=== PATIENT | female | born 1995 | race Caucasian/White ===

== ENCOUNTER 2016-07-01 15:05 | Observation (INO) | payer OTHER ==
[2016-07-01 16:04] VITALS: O2SAT 98
[2016-07-01 16:43] LABS: BASOPHIL % 0.1 % (0.0-0.4); Eosinophil % 1.9 % (0.00-5.0); Lymphocytes % 12.9 % (24.0-44.0); Mean Cell Volume 85.8 fl (78-100); Mean Platelet Volume 10.9 fl (6-9.5); Monocytes % 8.1 % (0.0-12.0); Platelet Count 253 K/mm3 (150-450); Red Blood Count 4.23 M/mm3 (4.1-5.4); Red Cell Distribution Width 13.7 % (11.5-14.0); White Blood Count 12.4 K/mm3 (4.0-10.5)
[2016-07-01 16:48] LABS: Mean Corpuscular Hemoglobin 27.8 pg (26-32)
[2016-07-01 16:52] LABS: COMPLETE URINE MICROSCOPIC? YES; Collection Type CLEAN CATCH; Mucus SLIGHT /HPF (NEGATIVE)
[2016-07-01 16:53] LABS: Bacteria FEW /HPF (NEGATIVE); Epithelial Cells FEW /HPF (FEW)
[2016-07-01 17:01] LABS: ALBUMIN 2.6 g/dL (3.4-5.0); ALKALINE PHOSPHATASE 99 U/L (46-116); ANION GAP 14.2 MEQ/L (5-15); BLOOD UREA NITROGEN 8 mg/dL (9-20); CHLORIDE 106 mEq/L (98-107); Glucose 93 MG/DL (70-110); SGOT/AST 11 U/L (15-37); SGPT/ALT 10 U/L (12-78); SODIUM 139 mEq/L (136-145); Total Protein 6.5 gm/dL (6.4-8.2)
[2016-07-01 17:14] LABS: BILIRUBIN,TOTAL < 0.1 mg/dL (0.2-1.0)
[2016-07-01] MEDS ORDERED: MORPHINE SULFATE 2 MG INJ IV ONE (17:32)
[2016-07-01] MEDS ORDERED: Lactated Ringers 1,000 ML IV ONE (17:32)
[2016-07-01] MEDS ORDERED: Zofran 4 MG/2 ML VIAL IV ONE (17:33)
[2016-07-01] MEDS: Lactated Ringers 1,000 ML IV SCH (18:11)
[2016-07-01] MEDS ORDERED: MORPHINE SULFATE 4 MG INJ ONE ×2 (19:53→22:19)
[2016-07-01] MEDS: MORPHINE SULFATE 4 MG INJ IV PRN ×2 (19:58→22:22)
[2016-07-01] MEDS: Zofran 4 MG/2 ML VIAL IV PRN (22:22)
[2016-07-02] MEDS ORDERED: MORPHINE SULFATE 4 MG INJ ONE ×4 (00:31→06:22)
[2016-07-02] MEDS: MORPHINE SULFATE 4 MG INJ IV PRN ×9 (00:34→19:50)
[2016-07-02] MEDS: Zofran 4 MG/2 ML VIAL IV PRN ×4 (02:21→19:50)
[2016-07-02] MEDS: Lactated Ringers 1,000 ML IV SCH ×2 (02:21→13:34)
--- NOTE | 2016-07-02 07:05 | PCM.HP ---
History of Present Illness - Chief Complaint Chief Complaint: OB CHECK History of Present Illness: is a 21 year old female at 30 wks EGA who has seen Dr Cole for her , she presented c/o left lower abdominal pain and sharp stabbing pain. She denies any noticeable hematuria. - Review of Systems Constitutional: No Fever, No Chills Respiratory: No Cough, No Short Of Breath Cardiac: No Chest Pain, No Edema, No Syncope Abdominal/Gastrointestinal: Abdominal Pain, No Nausea, No Vomiting Genitourinary Symptoms: No Dysuria, No Frequency, No Hematuria Skin: No Rash All Other Systems: Reviewed and Negative Medications & Allergies Home Medications: Home Medication List Vits W-Ca,Fe,FA(<1Mg) [] 1 tab PO DAILY 07/01/16 [History Confirmed 07/01/16] Sertraline HCl [Zoloft] 1 tab PO DAILY 07/01/16 [History Confirmed 07/01/16] Allergies/Adverse Reactions: Allergies Allergy/AdvReac Type Severity Reaction Status Date / Time No Known Drug Allergies Allergy Verified 12/13/15 20:33 - Past Medical History Past Medical History: Yes Neurological History: No Pertinent History ENT History: No Pertinent History Cardiac History: No Pertinent History Respiratory History: No Pertinent History Endocrine Medical History: No Pertinent History Musculoskelatal History: No Pertinent History GI Medical History: No Pertinent History History: Other Pyscho-Social History: Anxiety Reproductive Disorders: No Pertinent History Comment: KIDNEY STONES - Female History Expected Date of Delivery: 09/09/16 - Past Surgical History Past Surgical History: No Neuro Surgical History: No Pertinent History Cardiac History: No Pertinent History Respiratory Surgery: No Pertinent History GI Surgical History: No Pertinent History Genitourinary Surgical Hx: No Pertinent History Musculskeletal Surgical Hx: No Pertinent History Female Surgical History: No Pertinent History Other Surgical History: WISDOM TEETH. KIDNEY STONE SURGICALLY REMOVED - Social History Smoking Status: Former smoker How long have you smoked: 10 months Exposure to second hand smoke: No Alcohol: None Drug Use: none - Physical Exam Vital Signs: Vital Signs - 24 hr Temp Pulse Resp BP BP Pulse Ox 07/02/16 06:51 89 125/65 07/02/16 02:40 97 H 124/68 07/02/16 00:00 98.7 F 104 H 124/71 07/01/16 22:00 96 H 138/63 07/01/16 19:00 97.8 F 78 20 128/64 07/01/16 18:10 96 H 18 132/70 07/01/16 16:59 83 18 131/65 07/01/16 15:40 96 H 154/70 07/01/16 15:31 98.3 F 96 H 18 157/70 98 General Appearance: no apparent distress, alert Respiratory Exam: normal breath sounds, lungs clear, No respiratory distress Cardiovascular Exam: regular rate/rhythm, normal heart sounds, normal peripheral pulses Gastrointestinal/Abdomen Exam: tenderness (left lower abdomen) Extremity Exam: normal inspection, normal range of motion, pelvis stable Skin Exam: normal color, warm, dry, No rash Results - Labs Lab/Micro Results: Lab Results-Last 24 Hours 07/01/16 07/01/16 07/01/16 Range/Units 16:24 16:30 16:38 WBC 12.4 H (4.0-10.5) K/mm3 RBC 4.23 (4.1-5.4) M/mm3 Hgb 11.8 L (12.0-16.0) gm/dl Hct 36.3 (35-47) % MCV 85.8 (78-100) fl MCH 27.8 (26-32) pg MCHC 32.5 (32-36) g/dl RDW 13.7 (11.5-14.0) % Plt Count 253 (150-450) K/mm3 MPV 10.9 H (6-9.5) fl Gran % 77.0 H (36.0-66.0) % Lymphocytes % 12.9 L (24.0-44.0) % Monocytes % 8.1 (0.0-12.0) % Eosinophils % 1.9 (0.00-5.0) % Basophils % 0.1 (0.0-0.4) % Basophils # 0.01 (0-0.4) Sodium (136-145) mEq/L Potassium (3.5-5.1) mEq/L Chloride (98-107) mEq/L Carbon Dioxide (21-32) mEq/L Anion Gap (5-15) MEQ/L BUN (9-20) mg/dL Creatinine (0.55-1.30) mg/dl Estimated GFR ML/MIN Glucose (70-110) MG/DL Uric Acid (2.6-6.0) mg/dL Calcium (8.5-10.1) mg/dL Total Bilirubin (0.2-1.0) mg/dL AST (15-37) U/L ALT (12-78) U/L Alkaline Phosphatase (46-116) U/L Serum Total Protein (6.4-8.2) gm/dL Albumin (3.4-5.0) g/dL Ur Collection Type CLEAN CATCH Urine Color YELLOW (YELLOW) Urine Appearance CLOUDY (CLEAR) Urine pH 7.0 (5-6) Ur Specific Roosevelt 1.020 (1.005-1.025) Urine Protein 30 (Negative) Urine Glucose (UA) NEGATIVE (NEGATIVE) mg/dL Urine Ketones NEGATIVE (NEGATIVE) Urine Nitrite NEGATIVE (NEGATIVE) Urine Bilirubin NEGATIVE (NEGATIVE) Urine Urobilinogen 0.2 (0-1) mg/dL Urine WBC (Auto) NEGATIVE (NEGATIVE) Urine RBC (Auto) LARGE (0-5) Obed/ul Urine Microscopic RBC 25-50 (0-2) /HPF Ur Epithelial Cells FEW (FEW) /HPF Calcium Oxalate Crystal 2-5 (NEGATIVE) /HPF Amorphous Crystals FEW (NEGATIVE) /HPF Urine Bacteria FEW (NEGATIVE) /HPF Urine Mucus SLIGHT (NEGATIVE) /HPF Urine Opiates Level NEG. (NEGATIVE) Ur Methadone NEG. (NEGATIVE) Urine Barbiturates NEG. (NEGATIVE) Ur Phencyclidine (PCP) NEG. (NEGATIVE) Urine Amphetamine NEG. (NEGATIVE) U Benzodiazepine Level NEG. (NEGATIVE) Urine Cocaine NEG. (NEGATIVE) Urine Marijuana (THC) NEG. (NEGATIVE) Specimen Received 07/01/16:1630 07/01/16 Range/Units 16:38 WBC (4.0-10.5) K/mm3 RBC (4.1-5.4) M/mm3 Hgb (12.0-16.0) gm/dl Hct (35-47) % MCV (78-100) fl MCH (26-32) pg MCHC (32-36) g/dl RDW (11.5-14.0) % Plt Count (150-450) K/mm3 MPV (6-9.5) fl Gran % (36.0-66.0) % Lymphocytes % (24.0-44.0) % Monocytes % (0.0-12.0) % Eosinophils % (0.00-5.0) % Basophils % (0.0-0.4) % Basophils # (0-0.4) Sodium 139 (136-145) mEq/L Potassium 4.0 (3.5-5.1) mEq/L Chloride 106 (98-107) mEq/L Carbon Dioxide 23.0 (21-32) mEq/L Anion Gap 14.2 (5-15) MEQ/L BUN 8 L (9-20) mg/dL Creatinine 0.70 (0.55-1.30) mg/dl Estimated GFR > 60 ML/MIN Glucose 93 (70-110) MG/DL Uric Acid 4.9 (2.6-6.0) mg/dL Calcium 8.4 L (8.5-10.1) mg/dL Total Bilirubin < 0.1 L (0.2-1.0) mg/dL AST 11 L (15-37) U/L ALT 10 L (12-78) U/L Alkaline Phosphatase 99 (46-116) U/L Serum Total Protein 6.5 (6.4-8.2) gm/dL Albumin 2.6 L (3.4-5.0) g/dL Ur Collection Type Urine Color (YELLOW) Urine Appearance (CLEAR) Urine pH (5-6) Ur Specific Roosevelt (1.005-1.025) Urine Protein (Negative) Urine Glucose (UA) (NEGATIVE) mg/dL Urine Ketones (NEGATIVE) Urine Nitrite (NEGATIVE) Urine Bilirubin (NEGATIVE) Urine Urobilinogen (0-1) mg/dL Urine WBC (Auto) (NEGATIVE) Urine RBC (Auto) (0-5) Obed/ul Urine Microscopic RBC (0-2) /HPF Ur Epithelial Cells (FEW) /HPF Calcium Oxalate Crystal (NEGATIVE) /HPF Amorphous Crystals (NEGATIVE) /HPF Urine Bacteria (NEGATIVE) /HPF Urine Mucus (NEGATIVE) /HPF Urine Opiates Level (NEGATIVE) Ur Methadone (NEGATIVE) Urine Barbiturates (NEGATIVE) Ur Phencyclidine (PCP) (NEGATIVE) Urine Amphetamine (NEGATIVE) U Benzodiazepine Level (NEGATIVE) Urine Cocaine (NEGATIVE) Urine Marijuana (THC) (NEGATIVE) Specimen Received - Radiology Impressions Radiology Exams & Impressions: Radiology Procedures Category Date Time Status KIDNEY [US] Urgent Exams 07/02/16 06:59 Ordered Assessment/Plan (1) Ureteral stone Current Visit: Yes Status: Acute Assessment & Plan: patient has significant pain and hematuria on u/a with calcium oxalate crystals. has had stones in the past (2) Current Visit: Yes Status: Acute Code(s): Z33.1 - STATE, INCIDENTAL
--- NOTE | 2016-07-02 16:33 | XRAY ---
Indication: Right flank pain and hematuria. Crystals in urine. Patient 30 weeks . Two-dimensional renal sonogram performed. Comparison: February 04, 2013. Both kidneys again normal in reniform shape. Right kidney measures 12.0 x 6.4 x 4.9 cm and the left measures 11.6 x 4.6 x 5.2 cm. Right kidney demonstrates new moderate hydronephrosis with 7 mm calculus in the lower calyx. Left kidney negative for suspicious mass or hydronephrosis. Images of the bladder unremarkable with bilateral ureteral jets demonstrated. Impression: 1. New right renal hydronephrosis with subcentimeter calculus. Distal right ureteral jet is documented suggesting little to no obstruction. Hydronephrosis could be also related to current . 2. Negative left renal sonogram.
[2016-07-02] MEDS ORDERED: TYLENOL 325 MG PO PRN (17:52)
[2016-07-02 17:54] VITALS: BP 123/59; PULSE 90
[2016-07-02] MEDS ORDERED: TYLENOL 325 MG ONE (17:54)
== END 2016-07-02 20:07 | disposition critical access hospital (66) ==
LOC: OB 15:05 → UNDOADMOB 15:05 → UNDODISOB 07-02 20:07
PROVIDERS: ADMIT Family Medicine; ATTEND Family Medicine
DX: N20.0 Calculus of kidney (principal); Z33.1 Pregnant state, incidental; Z87.442 Personal history of urinary calculi
CPT/HCPCS: 36415; 76770; 80053; 80307; 81000; 84550; 85025; G0378; J2270; J2405; A9270-GY

== ENCOUNTER 2016-08-08 06:06 | Observation (INO) | payer OTHER ==
[2016-08-08] MEDS ORDERED: Lactated Ringers 1,000 ML IV ONE ×2 (06:32→06:45)
[2016-08-08 07:03] LABS: Collection Type CLEAN CATCH
[2016-08-08 07:04] LABS: COMPLETE URINE MICROSCOPIC? YES
[2016-08-08] MEDS ORDERED: MORPHINE SULFATE 10 MG/ML IV ONE (07:04)
[2016-08-08] MEDS ORDERED: Phenergan 25 MG INJ IV ONE (07:05)
[2016-08-08 07:06] LABS: Mucus SLIGHT /HPF (NEGATIVE)
[2016-08-08 07:07] LABS: Bacteria MODERATE /HPF (NEGATIVE); Epithelial Cells MODERATE /HPF (FEW)
[2016-08-08 07:11] LABS: BASOPHIL % 0.2 % (0.0-0.4); Eosinophil % 2.1 % (0.00-5.0); Granulocytes % 65.8 % (36.0-66.0); Lymphocytes % 23.4 % (24.0-44.0); Mean Cell Volume 84.9 fl (78-100); Mean Platelet Volume 12.5 fl (6-9.5); Monocytes % 8.5 % (0.0-12.0); Platelet Count 259 K/mm3 (150-450); Red Blood Count 4.17 M/mm3 (4.1-5.4); Red Cell Distribution Width 14.4 % (11.5-14.0); White Blood Count 10.1 K/mm3 (4.0-10.5)
[2016-08-08] MEDS ORDERED: Sodium Chloride 0.9% 1000 ML 1,000 ML IV STA (07:12)
[2016-08-08 07:19] LABS: Mean Corpuscular Hemoglobin 27.5 pg (26-32)
[2016-08-08 07:43] LABS: ALBUMIN 2.4 g/dL (3.4-5.0); ALKALINE PHOSPHATASE 110 U/L (46-116); ANION GAP 16.8 MEQ/L (5-15); BILIRUBIN,TOTAL 0.2 mg/dL (0.2-1.0); BLOOD UREA NITROGEN 14 mg/dL (9-20); CHLORIDE 105 mEq/L (98-107); Carbon Dioxide 19.5 mEq/L (21-32); Glucose 112 MG/DL (70-110); Potassium 3.6 mEq/L (3.5-5.1); SGOT/AST 15 U/L (15-37); SGPT/ALT 14 U/L (12-78); SODIUM 138 mEq/L (136-145); Total Protein 6.2 gm/dL (6.4-8.2)
[2016-08-08] MEDS ORDERED: MORPHINE SULFATE 10 MG/ML IV PRN (08:04)
[2016-08-08] MEDS ORDERED: Lactated Ringers 1,000 ML IV SCH (09:30)
[2016-08-08] MEDS ORDERED: ROCEPHIN 1 Gm-D5w 50 ml Bag** 1 G/50 ML IVPB IV SCH (10:00)
--- NOTE | 2016-08-08 10:25 | XRAY ---
Indication: Pain. 2-dimensional OB ultrasound performed. Comparison: February 01, 2016. Again there is a single viable intrauterine currently in cephalic presentation. Normal four-chamber heart with heart rate 144 bpm. Three-vessel cord not clearly seen but normal cord insertion. Images of the head, spine, stomach, kidneys, and bladder appear unremarkable. Placenta is posterior without abruption/previa. Cervical length measures 3.7 cm. BPD measures 9.22 cm corresponding to 37 weeks 3 days. HC measures 32.80 cm corresponding to 37 weeks 2 days. AC measures 34.76 cm corresponding to 38 weeks 5 days. FL measures 6.99 cm corresponding to 35 weeks 6 days. ROXANN is 16.8 cm. Impression: Again single viable intrauterine with mean gestational age 37 weeks 2 days. There has been progression in the with the fetus now measuring 12 days larger. Three-vessel cord not clearly seen.
--- NOTE | 2016-08-08 10:26 | XRAY ---
Indication: Left-sided pain. Two-dimensional renal sonogram performed. Comparison: July 02, 2016. Both kidneys again normal in reniform shape. Right kidney measures 11.6 x 5.0 x 4.8 cm and the left measures 11.4 x 5.7 x 5.6 cm. Normal color perfusion bilaterally. Previous right renal calculus and hydronephrosis not seen. No suspicious renal mass or hydronephrosis. Cortical medullary differentiation preserved without cortical thinning. Impression: Negative renal sonogram.
[2016-08-08 16:59] VITALS: BP 144/70; PULSE 93
== END 2016-08-08 16:25 | disposition home or self-care (01) ==
LOC: OB 06:06
PROVIDERS: ADMIT Family Medicine; ATTEND Family Medicine
DX: Z34.03 Encounter for supervision of normal first pregnancy, third trimester (principal)
CPT/HCPCS: 36415; 76770; 76805; 80053; 80307; 81000; 85025; 87086; G0378; J0696; J2270; J2550

== ENCOUNTER 2016-08-16 15:08 | Emergency (ER) | payer OTHER ==
[2016-08-16 15:25] VITALS: BP 159/85
[2016-08-16] MEDS ORDERED: AMOXIL 500 MG PO ONE (15:46)
--- NOTE | 2016-08-16 15:46 | ERPHSYRPT ---
- History of Present Illness Time Seen by Provider: 08/16/16 15:30 Source: patient Exam Limitations: clinical condition Patient Subjective Stated Complaint: normal vaginal delivery four days ago and woke up this am with a cough and trouble breathing. coughing up clear watery stuff Triage Nursing Assessment: to room per w/c. skin w/d, color pale, resp nonlabored. Physician History: PATIENT IS 4 DAYS SPONTANEOUS VAGINAL DELIVERY UNDER EPIDURAL ANESTHESIA, COMPLAINS OF PRODUCTIVE COUGH CLEAR SPUTUM TODAY. DENIES FEVER, CHILLS, CHEST PAIN OR DYSPNEA. Timing/Duration: today Cough Quality/Degree: moderate, productive cough Possible Cause: no prior episodes Modifying Factors: Improves With: coughing, deep breath International travel in last 2 weeks: No Allergies/Adverse Reactions: No Known Drug Allergies Allergy (Verified 12/13/15 20:33) Home Medications: Vits W-Ca,Fe,FA(<1Mg) [] 1 tab PO DAILY 07/01/16 [History] Sertraline HCl [Zoloft] 1 tab PO DAILY 07/01/16 [History] Hx Tetanus, Diphtheria Vaccination/Date Given: No Hx Influenza Vaccination/Date Given: Yes (2015) Hx Pneumococcal Vaccination/Date Given: No - Review of Systems Constitutional: No Symptoms, No Fever, No Chills Eyes: No Symptoms Ears, Nose, & Throat: No Symptoms Respiratory: Cough, No Dyspnea Cardiac: No Symptoms, No Chest Pain, No Edema, No Syncope Abdominal/Gastrointestinal: No Symptoms, No Abdominal Pain, No Nausea, No Vomiting, No Diarrhea Genitourinary Symptoms: No Symptoms, No Dysuria Musculoskeletal: No Symptoms, No Back Pain, No Neck Pain Skin: No Symptoms, No Rash Neurological: No Dizziness, No Focal Weakness, No Sensory Changes Psychological: No Symptoms Endocrine: No Symptoms All Other Systems: Reviewed and Negative - Past Medical History Pertinent Past Medical History: Yes Neurological History: No Pertinent History ENT History: No Pertinent History Cardiac History: No Pertinent History Respiratory History: No Pertinent History Endocrine Medical History: No Pertinent History Musculoskeletal History: No Pertinent History GI Medical History: No Pertinent History History: Other Psycho-Social History: Anxiety Female Reproductive Disorders: No Pertinent History Other Medical History: KIDNEY STONES, preeclampsia - Past Surgical History Past Surgical History: No Neuro Surgical History: No Pertinent History Cardiac: No Pertinent History Respiratory: No Pertinent History Gastrointestinal: No Pertinent History Genitourinary: No Pertinent History Musculoskeletal: No Pertinent History Female Surgical History: No Pertinent History Other Surgical History: WISDOM TEETH. KIDNEY STONE SURGICALLY REMOVED - Social History Smoking Status: Never smoker How long have you smoked: 10 months Exposure to second hand smoke: No Drug Use: none Patient Lives Alone: No - Female History Hx Now: No - Nursing Vital Signs Nursing Vital Signs: Initial Vital Signs Temperature 98.6 F Temperature Source Oral Pulse Rate 74 Respiratory Rate 24 Blood Pressure [Right Arm] 159/85 Pain Intensity 4 - Physical Exam General Appearance: no apparent distress, alert Eye Exam: PERRL/EOMI, eyes nml inspection Ears, Nose, Throat Exam: normal ENT inspection, TMs normal, pharynx normal, moist mucous membranes Neck Exam: normal inspection, non-tender, supple, full range of motion Respiratory Exam: normal breath sounds, lungs clear, No respiratory distress Cardiovascular Exam: regular rate/rhythm, normal heart sounds Gastrointestinal/Abdomen Exam: soft, normal bowel sounds, No tenderness Back Exam: normal inspection, No CVA tenderness, No vertebral tenderness Extremity Exam: normal range of motion, pedal edema (+1 PRETIBAL EDEMA) Neurologic Exam: alert, oriented x 3, cooperative, normal mood/affect, sensation nml, No motor deficits Skin Exam: normal color, warm, dry, No rash Lymphatic Exam: No adenopathy SpO2 Interpretation: normal SpO2: 96 Oxygen Delivery: Room Air - Radiology Exams Chest X-ray Interpretation: Discussed w/ radiologist (SUBTLE RETROCARDIAL INFLITRATE/ ATELECTASIS LEFT LOWER LOBE) Ordered Tests: Active Orders 24 hr Category Date Time Status CHEST 2 VIEWS (PA AND LAT) Stat Exams 08/16/16 15:42 Completed Respiratory Nebulizer STAT RT 08/16/16 16:17 Completed Medication Summary Discontinued Medications Generic Name Dose Route Start Last Admin Trade Name Freq PRN Reason Stop Dose Admin Albuterol/Ipratropium 3 ml 08/16/16 16:17 08/16/16 16:24 Duoneb 0.5-3 Mg/3 Ml Neb IH 08/16/16 16:18 3 ml STAT ONE Administration Albuterol/Ipratropium Confirm 08/16/16 16:22 Duoneb 0.5-3 Mg/3 Ml Neb Administered 08/16/16 16:23 Dose 3 ml IH .STK-MED ONE Amoxicillin 500 mg 08/16/16 15:46 08/16/16 16:11 Amoxil 500 Mg PO 08/16/16 15:47 500 mg STAT ONE Administration Amoxicillin Confirm 08/16/16 16:09 Amoxil 500 Mg Administered 08/16/16 16:10 Dose 500 mg .ROUTE .STK-MED ONE - Progress Progress: improved Progress Note: 08/16/16 16:44 PATIENT GIVEN DUONEB AEROSOL, AMOXICILLIN 500MG ORALLY Counseled pt/family regarding: diagnosis, need for follow-up, rad results - Departure Time of Disposition: 17:00 Departure Disposition: Home Clinical Impression: ACUTE BRONCHITIS Condition: Stable Critical Care Time: No Additional Instructions: ANTIBIOTIC AMOXICILLIN 500MG EVERY 8 HOURS FOR 10 DAYS. TYLENOL OR MOTRIN FOR FEVER NEEDED. ALBUTEROL INHALER 2 PUFFS EVERY 4 HOURS NEEDED. CONSULT YOUR FAMILY PHYSICIAN FOR FOLLOWUP IN 1 WEEK. Prescriptions: Albuterol 8 gm Mdi Hfa [Ventolin Hfa MDI] 2 puffs IH Q4H PRN PRN #1 [email or web address] PRN Reason: DIFFICULTY BREATHING Amoxicillin 500 mg PO TID #30 tablet
[2016-08-16] MEDS ORDERED: AMOXIL 500 MG ONE (16:09)
[2016-08-16] MEDS ORDERED: DUONEB 0.5-3 MG/3 ml Neb IH ONE ×2 (16:17→16:22)
--- NOTE | 2016-08-16 16:19 | XRAY ---
Indication: Productive cough. Comparison: January 27, 2015. PA/lateral chest demonstrates new subtle retrocardiac infiltrate/atelectasis, probably left lower lobe. Remaining heart, lungs, and bony thorax normal.
[2016-08-16 16:26] VITALS: PULSE 74
[2016-08-16 16:50] VITALS: O2SAT 96
== END 2016-08-16 17:07 | disposition home or self-care (01) ==
LOC: ED 15:08
DX: J20.9 Acute bronchitis, unspecified (principal); R05 Cough
CPT/HCPCS: 71020; 94640; 99283; 99284; A9270-GY

== ENCOUNTER 2017-01-03 02:46 | Emergency (ER) | payer OTHER ==
[2017-01-03] MEDS ORDERED: TORAdol 30 mg Injection IV ONE (03:01)
--- NOTE | 2017-01-03 03:08 | ERPHSYRPT ---
- History of Present Illness Time Seen by Provider: 01/03/17 02:52 Source: patient Exam Limitations: no limitations Physician History: WITHIN THE PAST 5 HOURS PT HAS HAD SUBJECTIVE FEVER, CHILLS, NAUSEA, URINARY URGENCY, DIZZINESS AND TINNITUS. Allergies/Adverse Reactions: No Known Drug Allergies Allergy (Verified 01/03/17 03:33) Home Medications: Sertraline HCl [Zoloft] 1 tab PO DAILY 07/01/16 [History] Hx Tetanus, Diphtheria Vaccination/Date Given: No Hx Influenza Vaccination/Date Given: Yes (2015) Hx Pneumococcal Vaccination/Date Given: No - Review of Systems Constitutional: Fever, Chills Ears, Nose, & Throat: Tinnitus Abdominal/Gastrointestinal: Nausea Genitourinary Symptoms: Urgency Neurological: Dizziness All Other Systems: Reviewed and Negative - Past Medical History Pertinent Past Medical History: Yes Neurological History: No Pertinent History ENT History: No Pertinent History Cardiac History: No Pertinent History Respiratory History: No Pertinent History Endocrine Medical History: No Pertinent History Musculoskeletal History: No Pertinent History GI Medical History: No Pertinent History History: Other Psycho-Social History: Anxiety Female Reproductive Disorders: No Pertinent History Other Medical History: KIDNEY STONES, preeclampsia - Past Surgical History Past Surgical History: No Neuro Surgical History: No Pertinent History Cardiac: No Pertinent History Respiratory: No Pertinent History Gastrointestinal: No Pertinent History Genitourinary: No Pertinent History Musculoskeletal: No Pertinent History Female Surgical History: No Pertinent History Other Surgical History: WISDOM TEETH. KIDNEY STONE SURGICALLY REMOVED - Social History Smoking Status: Never smoker How long have you smoked: 10 months Exposure to second hand smoke: No Drug Use: none Patient Lives Alone: No - Female History Hx Now: No - Nursing Vital Signs Nursing Vital Signs: Initial Vital Signs Temperature 100.8 F 01/03/17 02:50 Pulse Rate 96 H 01/03/17 02:50 Respiratory Rate 16 01/03/17 02:50 Blood Pressure 138/60 01/03/17 02:50 O2 Sat by Pulse Oximetry 95 01/03/17 02:50 Pain Scale Pain Intensity 2 - Physical Exam General Appearance: alert Eye Exam: PERRL/EOMI Ears, Nose, Throat Exam: moist mucous membranes, TM abnormal (L) (LEFT TM ERYTHEMATOUS) Neck Exam: normal inspection Respiratory Exam: lungs clear Cardiovascular Exam: normal heart sounds Gastrointestinal/Abdomen Exam: soft, normal bowel sounds, No tenderness Back Exam: normal range of motion Extremity Exam: normal inspection, No pedal edema Neurologic Exam: alert, cooperative Skin Exam: warm, dry - Course Nursing assessment & vital signs reviewed: Yes - CT Exams Abdomen/Pelvis CT Interpretation: Tele-radiologist Report (MULTIPLE NONOBSTRUCTING STONES ARE PRESENT WITHIN THE RIGHT KIDNEY. NO DISTAL URETERAL OR BLADDER STONES ARE SEEN. NO HYDRONEPHROSIS.) Ordered Tests: Active Orders 24 hr Category Date Time Status Clean Catch Urine Specimen STAT Care 01/03/17 03:18 Active IV Insertion STAT Care 01/03/17 03:01 Active ABDOMEN AND PELVIS W/0 CONTRAS [CT] Stat Exams 01/03/17 04:34 Taken AMYLASE Stat Lab 01/03/17 03:30 Completed BLOOD CULTURE Stat Lab 01/03/17 03:30 Received CBC W DIFF Stat Lab 01/03/17 03:30 Completed CMP Stat Lab 01/03/17 03:30 Completed HCG QUALITATIVE,SERUM Stat Lab 01/03/17 03:30 Completed LIPASE Stat Lab 01/03/17 03:30 Completed UA W/RFX UR CULTURE Stat Lab 01/03/17 03:10 Completed Medication Summary Generic Name Dose Route Start Last Admin Trade Name Freq PRN Reason Stop Dose Admin Sodium Chloride 1,000 mls @ 325 mls/hr 01/03/17 03:15 01/03/17 03:34 Sodium Chloride 0.9% 1000 Ml IV 02/02/17 03:14 325 mls/hr .[id number] SAMEERA Administration Discontinued Medications Generic Name Dose Route Start Last Admin Trade Name Freq PRN Reason Stop Dose Admin Hydromorphone HCl 1 mg 01/03/17 04:35 01/03/17 04:54 Hydromorphone 1 Mg/Ml Ampule IV 01/03/17 04:36 1 mg STAT ONE Administration Ketorolac Tromethamine 30 mg 01/03/17 03:01 01/03/17 03:33 Toradol 30 Mg Injection IV 01/03/17 03:02 30 mg STAT ONE Administration Ketorolac Tromethamine Confirm 01/03/17 03:30 Toradol 30 Mg Injection Administered 01/03/17 03:31 Dose 30 mg .ROUTE .STK-MED ONE Promethazine HCl 12.5 mg 01/03/17 04:35 01/03/17 04:54 Phenergan 25 Mg Inj IV 01/03/17 04:36 12.5 mg STAT ONE Administration Promethazine HCl Confirm 01/03/17 04:52 Phenergan 25 Mg Inj Administered 01/03/17 04:53 Dose 25 mg .ROUTE .STK-MED ONE Lab/Rad Data: Laboratory Result Diagrams 01/03/17 03:30 01/03/17 03:30 Laboratory Results 01/03/17 01/03/17 01/03/17 Range/Units 03:30 03:30 03:30 WBC 5.5 (4.0-10.5) K/mm3 RBC 4.68 (4.1-5.4) M/mm3 Hgb 12.7 (12.0-16.0) gm/dl Hct 38.9 (35-47) % MCV 83.1 (78-100) fl MCH 27.1 (26-32) pg MCHC 32.6 (32-36) g/dl RDW 13.1 (11.5-14.0) % Plt Count 254 (150-450) K/mm3 MPV 11.1 H (6-9.5) fl Gran % 59.8 (36.0-66.0) % Lymphocytes % 24.4 (24.0-44.0) % Monocytes % 12.5 H (0.0-12.0) % Eosinophils % 2.9 (0.00-5.0) % Basophils % 0.4 (0.0-0.4) % Basophils # 0.02 (0-0.4) Sodium 141 (136-145) mEq/L Potassium 3.7 (3.5-5.1) mEq/L Chloride 106 (98-107) mEq/L Carbon Dioxide 24.7 (21-32) mEq/L Anion Gap 14.0 (5-15) MEQ/L BUN 12 (9-20) mg/dL Creatinine 0.83 (0.55-1.30) mg/dl Estimated GFR > 60 ML/MIN Glucose 121 H (70-110) MG/DL Calcium 9.1 (8.5-10.1) mg/dL Total Bilirubin 0.10 L (0.2-1.0) mg/dL AST 18 (15-37) U/L ALT 30 (12-78) U/L Alkaline Phosphatase 147 H (46-116) U/L Serum Total Protein 6.8 (6.4-8.2) gm/dL Albumin 3.3 L (3.4-5.0) g/dL Amylase 45 (25-115) U/L Lipase 126 (73-393) U/L Serum , Qual NEGATIVE (Negative) Ur Collection Type Urine Color (YELLOW) Urine Appearance (CLEAR) Urine pH (5-6) Ur Specific Girard (1.005-1.025) Urine Protein (Negative) Urine Ketones (NEGATIVE) Urine Blood (0-5) Obed/ul Urine Nitrite (NEGATIVE) Urine Bilirubin (NEGATIVE) Urine Urobilinogen (0-1) mg/dL Ur Leukocyte Esterase (NEGATIVE) Urine Glucose (NEGATIVE) mg/dL Specimen Received 01/03/17 Range/Units 03:10 WBC (4.0-10.5) K/mm3 RBC (4.1-5.4) M/mm3 Hgb (12.0-16.0) gm/dl Hct (35-47) % MCV (78-100) fl MCH (26-32) pg MCHC (32-36) g/dl RDW (11.5-14.0) % Plt Count (150-450) K/mm3 MPV (6-9.5) fl Gran % (36.0-66.0) % Lymphocytes % (24.0-44.0) % Monocytes % (0.0-12.0) % Eosinophils % (0.00-5.0) % Basophils % (0.0-0.4) % Basophils # (0-0.4) Sodium (136-145) mEq/L Potassium (3.5-5.1) mEq/L Chloride (98-107) mEq/L Carbon Dioxide (21-32) mEq/L Anion Gap (5-15) MEQ/L BUN (9-20) mg/dL Creatinine (0.55-1.30) mg/dl Estimated GFR ML/MIN Glucose (70-110) MG/DL Calcium (8.5-10.1) mg/dL Total Bilirubin (0.2-1.0) mg/dL AST (15-37) U/L ALT (12-78) U/L Alkaline Phosphatase (46-116) U/L Serum Total Protein (6.4-8.2) gm/dL Albumin (3.4-5.0) g/dL Amylase (25-115) U/L Lipase (73-393) U/L Serum , Qual (Negative) Ur Collection Type CLEAN CATCH Urine Color YELLOW (YELLOW) Urine Appearance CLEAR (CLEAR) Urine pH 6.0 (5-6) Ur Specific [place] 1.015 (1.005-1.025) Urine Protein NEGATIVE (Negative) Urine Ketones NEGATIVE (NEGATIVE) Urine Blood NEGATIVE (0-5) Obed/ul Urine Nitrite NEGATIVE (NEGATIVE) Urine Bilirubin NEGATIVE (NEGATIVE) Urine Urobilinogen NORMAL (0-1) mg/dL Ur Leukocyte Esterase NEGATIVE (NEGATIVE) Urine Glucose NEGATIVE (NEGATIVE) mg/dL Specimen Received 01/03/17:0300 - Departure Time of Disposition: 06:15 Departure Disposition: Home Clinical Impression: RIGHT MID BACK PAIN, LOM, ANXIETY Condition: Stable Critical Care Time: No Referrals: JEANINE HYMAN [Primary Care Provider] - Instructions: Otitis Media (Middle Ear Infection) Additional Instructions: FOLLOW UP WITH PRIVATE DOCTOR TOMORROW. Prescriptions: Promethazine HCl 25 mg [Phenergan 25 mg] 25 mg PO Q4H PRN PRN #14 tablet PRN Reason: Nausea/Vomiting Azithromycin 250 mg [Zithromax 250 MG TABLET] 250 mg PO ZPACK #6 tablet
[2017-01-03] MEDS ORDERED: Sodium Chloride 0.9% 1000 ML 1,000 ML IV SCH (03:15)
[2017-01-03 03:30] LABS: ADD URINE CULTURE? NO (NO); Bilirubin NEGATIVE (NEGATIVE); Blood NEGATIVE Ery/ul (0-5); COMPLETE URINE MICROSCOPIC? NO; Collection Type CLEAN CATCH; Glucose NEGATIVE (NEGATIVE); Leukocyte Esterase NEGATIVE (NEGATIVE)
[2017-01-03] MEDS ORDERED: TORAdol 30 mg Injection ONE (03:30)
[2017-01-03] MEDS ORDERED: Sodium Chloride 0.9% 1000 ML 1,000 ML ONE (03:30)
[2017-01-03 03:54] LABS: BASOPHIL % 0.4 % (0.0-0.4); Eosinophil % 2.9 % (0.00-5.0); Granulocytes % 59.8 % (36.0-66.0); Lymphocytes % 24.4 % (24.0-44.0); Mean Cell Volume 83.1 fl (78-100); Mean Corpuscular Hemoglobin 27.1 pg (26-32); Mean Platelet Volume 11.1 fl (6-9.5); Monocytes % 12.5 % (0.0-12.0); Platelet Count 254 K/mm3 (150-450); Red Blood Count 4.68 M/mm3 (4.1-5.4); Red Cell Distribution Width 13.1 % (11.5-14.0); White Blood Count 5.5 K/mm3 (4.0-10.5)
[2017-01-03 04:21] LABS: ALBUMIN 3.3 g/dL (3.4-5.0); ALKALINE PHOSPHATASE 147 U/L (46-116); BLOOD UREA NITROGEN 12 mg/dL (9-20); CHLORIDE 106 mEq/L (98-107); Carbon Dioxide 24.7 mEq/L (21-32); Glucose 121 MG/DL (70-110); LIPASE 126 U/L (73-393); Potassium 3.7 mEq/L (3.5-5.1); SGOT/AST 18 U/L (15-37); SGPT/ALT 30 U/L (12-78); SODIUM 141 mEq/L (136-145); Total Protein 6.8 gm/dL (6.4-8.2)
[2017-01-03] MEDS ORDERED: Hydromorphone 1 mg/ml Ampule IV ONE (04:35)
[2017-01-03] MEDS ORDERED: Phenergan 25 MG INJ IV ONE (04:35)
[2017-01-03] MEDS ORDERED: Phenergan 25 MG INJ ONE (04:52)
[2017-01-03 05:32] VITALS: PULSE 80
[2017-01-03] MEDS ORDERED: Zithromax 250 MG TABLET PO ONE (06:18)
[2017-01-03] MEDS ORDERED: Zithromax 250 MG TABLET ONE (06:22)
[2017-01-03 06:57] VITALS: BP 130/70; O2SAT 98
--- NOTE | 2017-01-03 09:41 | XRAY ---
Indication: Right flank pain. History of renal stone. Multiple contiguous axial images obtained through the abdomen and pelvis without contrast as ordered.. Comparison: December 06, 2016. Lung bases demonstrate minimal bibasilar atelectasis/scarring. Heart is not enlarged. Stomach is distended with food/fluid. Noncontrasted bowel loops again appear nonobstructed. Normal appendix. Gallbladder contracted without gallstones. No free fluid/air. There are now 2 nonobstructing punctate right renal calculi. Spleen remains enlarged today measuring 15 cm in greatest axial dimension. Remaining liver, gallbladder, pancreas, spleen, adrenal glands, kidneys, ureters, bladder, uterus, and aorta appear unremarkable for noncontrast exam. Osseous structures intact. Impression: 1. Nonobstructing right renal micro-calculi. 2. Stable splenomegaly. 3. No acute intra-abdominal/pelvic abnormalities on this noncontrast exam. Comment: Preliminary interpretation was made by [id number]. No critical discrepancy. CTDI 23.68
== END 2017-01-03 06:59 | disposition home or self-care (01) ==
LOC: ED 02:46
DX: M54.6 Pain in thoracic spine (principal); H66.92 Otitis media, unspecified, left ear; F41.9 Anxiety disorder, unspecified; R50.9 Fever, unspecified; R11.0 Nausea; R42 Dizziness and giddiness; H93.19 Tinnitus, unspecified ear; R39.15 Urgency of urination
CPT/HCPCS: 36000; 36415; 74176; 80053; 81002; 82150; 83690; 84703; 85025; 87040; 96360; 96361; 96374; 96375; 99284; J1170; J1885; J2550; A9270-GY

== ENCOUNTER 2017-02-11 03:14 | Emergency (ER) | payer OTHER ==
[2017-02-11] MEDS ORDERED: Lactated Ringers 1,000 ML IV ONE ×2 (03:37→03:53)
[2017-02-11] MEDS ORDERED: TYLENOL 325 MG PO ONE (03:37)
--- NOTE | 2017-02-11 03:41 | ERPHSYRPT ---
- History of Present Illness Time Seen by Provider: 02/11/17 03:23 Source: patient Physician History: CC: dizzy Hx: 21 y/[address] pt of Dr Cole at [facility]. She is early with sono showing IUP at office. Around 5 weeks gestation. She feels stuffy nose, ear pressure, dizzy feeling. Some headache. Recently turned on her gas heat at home. No V/D. Normal urination. No N/T/W. She has taken no meds today. Symptoms moderate. Timing/Duration: today Severity: moderate Allergies/Adverse Reactions: No Known Drug Allergies Allergy (Verified 02/11/17 04:21) Home Medications: Sertraline HCl [Zoloft] 1 tab PO DAILY 07/01/16 [History] Hx Tetanus, Diphtheria Vaccination/Date Given: No Hx Influenza Vaccination/Date Given: Yes (2015) Hx Pneumococcal Vaccination/Date Given: No - Review of Systems Constitutional: No Fever, No Chills Eyes: No Symptoms, No Vision Changes Ears, Nose, & Throat: No Symptoms, Ear Pain (pressure), Nose Congestion, No Ear Discharge Respiratory: No Cough, No Dyspnea Cardiac: No Chest Pain Abdominal/Gastrointestinal: No Abdominal Pain, No Nausea, No Vomiting, No Diarrhea Genitourinary Symptoms: No Dysuria Skin: No Rash Neurological: Dizziness, Headache, No Focal Weakness, No Parasthesia All Other Systems: Reviewed and Negative - Past Medical History Pertinent Past Medical History: Yes Neurological History: No Pertinent History ENT History: No Pertinent History Cardiac History: No Pertinent History Respiratory History: No Pertinent History Endocrine Medical History: No Pertinent History Musculoskeletal History: No Pertinent History GI Medical History: No Pertinent History History: Other Psycho-Social History: Anxiety Female Reproductive Disorders: No Pertinent History Other Medical History: KIDNEY STONES, preeclampsia - Past Surgical History Past Surgical History: No Neuro Surgical History: No Pertinent History Cardiac: No Pertinent History Respiratory: No Pertinent History Gastrointestinal: No Pertinent History Genitourinary: No Pertinent History Musculoskeletal: No Pertinent History Female Surgical History: No Pertinent History Other Surgical History: WISDOM TEETH. KIDNEY STONE SURGICALLY REMOVED - Social History Smoking Status: Never smoker How long have you smoked: 10 months Exposure to second hand smoke: No Drug Use: none Patient Lives Alone: No - Female History Hx Now: No - Nursing Vital Signs Nursing Vital Signs: Initial Vital Signs Temperature 99.1 F 02/11/17 03:14 Pulse Rate 90 02/11/17 03:14 Respiratory Rate 16 02/11/17 03:14 Blood Pressure 157/76 02/11/17 03:14 O2 Sat by Pulse Oximetry 98 02/11/17 03:14 Pain Scale Pain Intensity 2 - Physical Exam General Appearance: alert Eye Exam: PERRL/EOMI, No scleral icterus Ears, Nose, Throat Exam: normal ENT inspection, TMs normal, pharynx normal, moist mucous membranes Neck Exam: normal inspection, non-tender, supple, No meningismus Respiratory Exam: normal breath sounds, lungs clear Cardiovascular Exam: regular rate/rhythm Gastrointestinal/Abdomen Exam: soft, No tenderness, No distention Back Exam: normal inspection, normal range of motion Extremity Exam: normal inspection, normal range of motion Neurologic Exam: alert, oriented x 3, cooperative Skin Exam: warm, dry, No rash - Course Nursing assessment & vital signs reviewed: Yes Ordered Tests: Active Orders 24 hr Category Date Time Status Clean Catch Urine Specimen STAT Care 02/11/17 03:37 Active IV Insertion STAT Care 02/11/17 03:37 Active CBC W DIFF Stat Lab 02/11/17 03:45 Completed CMP Stat Lab 02/11/17 03:45 Completed UA W/RFX UR CULTURE Stat Lab 02/11/17 03:45 Completed VENOUS BLOOD GAS Urgent Lab 02/11/17 03:45 Completed Medication Summary Generic Name Dose Route Start Last Admin Trade Name Freq PRN Reason Stop Dose Admin Lactated Ringer's 1,000 mls @ 999 mls/hr 02/11/17 03:37 02/11/17 03:57 Lactated Ringers IV 02/11/17 04:37 999 mls/hr .[id number] ONE Administration Discontinued Medications Generic Name Dose Route Start Last Admin Trade Name Freq PRN Reason Stop Dose Admin Acetaminophen 975 mg 02/11/17 03:37 02/11/17 03:55 Tylenol 325 Mg PO 02/11/17 03:38 975 mg STAT ONE Administration Acetaminophen Confirm 02/11/17 03:53 Tylenol 325 Mg Administered 02/11/17 03:54 Dose 975 mg .ROUTE .STK-MED ONE Lactated Ringer's Confirm 02/11/17 03:53 Lactated Ringers Administered 02/11/17 03:54 Dose 1,000 mls @ ud IV .STK-MED ONE Lab/Rad Data: Laboratory Result Diagrams 02/11/17 03:45 02/11/17 03:45 Laboratory Results 02/11/17 02/11/17 02/11/17 Range/Units 03:45 03:45 03:45 WBC 11.7 H (4.0-10.5) K/mm3 RBC 4.77 (4.1-5.4) M/mm3 Hgb 12.8 (12.0-16.0) gm/dl Hct 39.3 (35-47) % MCV 82.4 (78-100) fl MCH 26.8 (26-32) pg MCHC 32.6 (32-36) g/dl RDW 14.5 H (11.5-14.0) % Plt Count 280 (150-450) K/mm3 MPV 10.7 H (6-9.5) fl Gran % 64.7 (36.0-66.0) % Lymphocytes % 26.2 (24.0-44.0) % Monocytes % 6.8 (0.0-12.0) % Eosinophils % 2.0 (0.00-5.0) % Basophils % 0.3 (0.0-0.4) % Basophils # 0.03 (0-0.4) VBG pH 7.36 (7.32-7.42) VBG pCO2 at Pat Temp 42 (42-55) mm/Hg VBG pO2 at Pat Temp 33 (25-40) mm/Hg VBG HCO3 23.7 (22-28) meq/L VBG O2 Sat (Mckenzie) 71.7 L (95-100) VBG Base Excess -1.8 (-2.0-2.0) VBG Hemoglobin 13.4 VBG Carboxyhemoglobin 3.0 (0.0-6.9) % T HGB POC Potassium 3.8 (3.5-5.1) Sodium 136 (136-145) mEq/L Potassium 3.7 (3.5-5.1) mEq/L Chloride 102 (98-107) mEq/L Carbon Dioxide 22.9 (21-32) mEq/L Anion Gap 15.1 H (5-15) MEQ/L BUN 12 (9-20) mg/dL Creatinine 0.78 (0.55-1.30) mg/dl Estimated GFR > 60 ML/MIN Glucose 120 H (70-110) MG/DL Calcium 9.1 (8.5-10.1) mg/dL Total Bilirubin 0.20 (0.2-1.0) mg/dL AST 12 L (15-37) U/L ALT 19 (12-78) U/L Alkaline Phosphatase 99 (46-116) U/L Serum Total Protein 7.1 (6.4-8.2) gm/dL Albumin 3.5 (3.4-5.0) g/dL Ur Collection Type Urine Color (YELLOW) Urine Appearance (CLEAR) Urine pH (5-6) Ur Specific [place] (1.005-1.025) Urine Protein (Negative) Urine Ketones (NEGATIVE) Urine Blood (0-5) Obed/ul Urine Nitrite (NEGATIVE) Urine Bilirubin (NEGATIVE) Urine Urobilinogen (0-1) mg/dL Ur Leukocyte Esterase (NEGATIVE) Urine Culture Reflexed (NO) Urine Glucose (NEGATIVE) mg/dL Specimen Received 02/11/17 Range/Units 03:45 WBC (4.0-10.5) K/mm3 RBC (4.1-5.4) M/mm3 Hgb (12.0-16.0) gm/dl Hct (35-47) % MCV (78-100) fl MCH (26-32) pg MCHC (32-36) g/dl RDW (11.5-14.0) % Plt Count (150-450) K/mm3 MPV (6-9.5) fl Gran % (36.0-66.0) % Lymphocytes % (24.0-44.0) % Monocytes % (0.0-12.0) % Eosinophils % (0.00-5.0) % Basophils % (0.0-0.4) % Basophils # (0-0.4) VBG pH (7.32-7.42) VBG pCO2 at Pat Temp (42-55) mm/Hg VBG pO2 at Pat Temp (25-40) mm/Hg VBG HCO3 (22-28) meq/L VBG O2 Sat (Mckenzie) (95-100) VBG Base Excess (-2.0-2.0) VBG Hemoglobin VBG Carboxyhemoglobin (0.0-6.9) % T HGB POC Potassium (3.5-5.1) Sodium (136-145) mEq/L Potassium (3.5-5.1) mEq/L Chloride (98-107) mEq/L Carbon Dioxide (21-32) mEq/L Anion Gap (5-15) MEQ/L BUN (9-20) mg/dL Creatinine (0.55-1.30) mg/dl Estimated GFR ML/MIN Glucose (70-110) MG/DL Calcium (8.5-10.1) mg/dL Total Bilirubin (0.2-1.0) mg/dL AST (15-37) U/L ALT (12-78) U/L Alkaline Phosphatase (46-116) U/L Serum Total Protein (6.4-8.2) gm/dL Albumin (3.4-5.0) g/dL Ur Collection Type CLEAN CATCH Urine Color YELLOW (YELLOW) Urine Appearance CLEAR (CLEAR) Urine pH 5.0 (5-6) Ur Specific [place] 1.020 (1.005-1.025) Urine Protein NEGATIVE (Negative) Urine Ketones NEGATIVE (NEGATIVE) Urine Blood NEGATIVE (0-5) Obed/ul Urine Nitrite NEGATIVE (NEGATIVE) Urine Bilirubin NEGATIVE (NEGATIVE) Urine Urobilinogen NORMAL (0-1) mg/dL Ur Leukocyte Esterase NEGATIVE (NEGATIVE) Urine Culture Reflexed NO (NO) Urine Glucose NEGATIVE (NEGATIVE) mg/dL Specimen Received 02/11/17 0345 - Progress Progress Note: 02/11/17 04:26 GARCIA some better. Ears look ok here. IVF bolus given. Advised follow up with dr Rodriguez. Will release after fluids. Labs reassuring. Counseled pt/family regarding: lab results, diagnosis, need for follow-up - Departure Time of Disposition: 04:27 Departure Disposition: Home Clinical Impression: Early stage of , Dizziness Condition: Stable Critical Care Time: No Referrals: JEANINE RODRIGUEZ [Primary Care Provider] - Instructions: -- Discomforts and Remedies Additional Instructions: Tylenol if needed for discomfort. Drink plenty of fluids. Follow up Sunday with Dr Rodriguez. No driving and stay with family tonite. Return for problems or concerns.
[2017-02-11 03:53] LABS: VBG BASE EXCESS -1.8 (-2.0-2.0); VBG HCO3- 23.7 meq/L (22-28); VBG HEMOGLOBIN 13.4; VBG O2 SATURATION 71.7 (95-100); VBG POTASSIUM 3.8 (3.5-5.1); VBG pH 7.36 (7.32-7.42)
[2017-02-11] MEDS ORDERED: TYLENOL 325 MG ONE (03:53)
[2017-02-11 03:56] LABS: BASOPHIL % 0.3 % (0.0-0.4); Granulocytes % 64.7 % (36.0-66.0); Lymphocytes % 26.2 % (24.0-44.0); Mean Cell Volume 82.4 fl (78-100); Mean Corpuscular Hemoglobin 26.8 pg (26-32); Mean Platelet Volume 10.7 fl (6-9.5); Monocytes % 6.8 % (0.0-12.0); Platelet Count 280 K/mm3 (150-450); Red Blood Count 4.77 M/mm3 (4.1-5.4); Red Cell Distribution Width 14.5 % (11.5-14.0); White Blood Count 11.7 K/mm3 (4.0-10.5)
[2017-02-11 04:03] LABS: ADD URINE CULTURE? NO (NO); Bilirubin NEGATIVE (NEGATIVE); Blood NEGATIVE Ery/ul (0-5); COMPLETE URINE MICROSCOPIC? NO; Collection Type CLEAN CATCH; Glucose NEGATIVE (NEGATIVE); Leukocyte Esterase NEGATIVE (NEGATIVE)
[2017-02-11 04:12] VITALS: O2SAT 98
[2017-02-11 04:17] LABS: ALBUMIN 3.5 g/dL (3.4-5.0); ALKALINE PHOSPHATASE 99 U/L (46-116); ANION GAP 15.1 MEQ/L (5-15); BLOOD UREA NITROGEN 12 mg/dL (9-20); CHLORIDE 102 mEq/L (98-107); Carbon Dioxide 22.9 mEq/L (21-32); Glucose 120 MG/DL (70-110); Potassium 3.7 mEq/L (3.5-5.1); SGOT/AST 12 U/L (15-37); SGPT/ALT 19 U/L (12-78); SODIUM 136 mEq/L (136-145); Total Protein 7.1 gm/dL (6.4-8.2)
[2017-02-11 05:30] VITALS: BP 130/80; PULSE 80
== END 2017-02-11 05:15 | disposition home or self-care (01) ==
LOC: ED 03:14
DX: O26.891 Other specified pregnancy related conditions, first trimester (principal); Z3A.01 Less than 8 weeks gestation of pregnancy; R42 Dizziness and giddiness
CPT/HCPCS: 36000; 36415; 80053; 81002; 82805; 85025; 96360; 99284; A9270-GY

== ENCOUNTER 2017-04-09 23:17 | Emergency (ER) | payer OTHER ==
--- NOTE | 2017-04-09 23:45 | ERPHSYRPT ---
- History of Present Illness Time Seen by Provider: 04/09/17 23:31 Source: patient, family Physician History: CC: left ear pain Hx: 21 y/o patient of Dr Adriano Ramsay, 14 weeks , with prior preeclampsia. She has left ear pain since this AM. No drng. Nol fever. Pain to left TMJ area and left face. Took APAP without relief. Prior wisdom tooth extraction. Pain is severe. No sinus drng. ALL: None Meds: PNV Surg: Kidney Stones Social: Nonsmoker Severity: moderate, severe Allergies/Adverse Reactions: No Known Drug Allergies Allergy (Verified 02/11/17 04:21) Home Medications: Sertraline HCl [Zoloft] 1 tab PO DAILY 07/01/16 [History] Hx Tetanus, Diphtheria Vaccination/Date Given: No Hx Influenza Vaccination/Date Given: Yes (2015) Hx Pneumococcal Vaccination/Date Given: No - Review of Systems Constitutional: No Fever, No Chills Eyes: No Symptoms Ears, Nose, & Throat: Ear Pain (left), Mouth Pain (left), No Ear Discharge, No Hearing Changes, No Nose Congestion, No Throat Pain Respiratory: No Cough Cardiac: No Chest Pain Abdominal/Gastrointestinal: No Abdominal Pain, No Vomiting Genitourinary Symptoms: , No Vaginal Bleeding Skin: No Rash Neurological: No Focal Weakness, No Headache, No Parasthesia All Other Systems: Reviewed and Negative - Past Medical History Pertinent Past Medical History: Yes Neurological History: No Pertinent History ENT History: No Pertinent History Cardiac History: No Pertinent History Respiratory History: No Pertinent History Endocrine Medical History: No Pertinent History Musculoskeletal History: No Pertinent History GI Medical History: No Pertinent History History: Other Psycho-Social History: Anxiety Female Reproductive Disorders: No Pertinent History Other Medical History: KIDNEY STONES, preeclampsia - Past Surgical History Past Surgical History: No Neuro Surgical History: No Pertinent History Cardiac: No Pertinent History Respiratory: No Pertinent History Gastrointestinal: No Pertinent History Genitourinary: No Pertinent History Musculoskeletal: No Pertinent History Female Surgical History: No Pertinent History Other Surgical History: WISDOM TEETH. KIDNEY STONE SURGICALLY REMOVED - Social History Smoking Status: Never smoker How long have you smoked: 10 months Exposure to second hand smoke: No Drug Use: none Patient Lives Alone: No - Nursing Vital Signs Nursing Vital Signs: Initial Vital Signs Temperature 97.9 F 04/09/17 23:38 Pulse Rate 96 H 04/09/17 23:38 Respiratory Rate 20 04/09/17 23:38 Blood Pressure 152/73 04/09/17 23:38 O2 Sat by Pulse Oximetry 98 04/09/17 23:38 Pain Scale Pain Intensity 0 - Physical Exam General Appearance: alert Eye Exam: PERRL/EOMI Ears, Nose, Throat Exam: normal ENT inspection, TMs normal (normal left TM,no redness, no drng, normal canal, good light reflex), moist mucous membranes, other (normal teeth; Mild clicking and left TMJ tenderness with ROM), No pharyngeal erythema, No tonsillar exudate Neck Exam: normal inspection, non-tender, supple, other (some left cervical adenopathy) Respiratory Exam: normal breath sounds Cardiovascular Exam: regular rate/rhythm Gastrointestinal/Abdomen Exam: soft, No tenderness, No distention Extremity Exam: normal inspection, normal range of motion Neurologic Exam: alert, oriented x 3, cooperative Skin Exam: warm, dry, No rash - Course Nursing assessment & vital signs reviewed: Yes Ordered Tests: Active Orders 24 hr Category Date Time Status Clean Catch Urine Specimen STAT Care 04/09/17 23:46 Active Heart Tones-ED STAT Care 04/09/17 23:46 Active CULTURE,URINE Stat Lab 04/09/17 23:48 Received UA W/ MICROSCOPIC Stat Lab 04/09/17 23:48 Completed Medication Summary Discontinued Medications Generic Name Dose Route Start Last Admin Trade Name Consuelo PRN Reason Stop Dose Admin Acetaminophen 650 mg 04/09/17 23:46 04/10/17 00:06 Tylenol 325 Mg PO 04/09/17 23:47 650 mg STAT ONE Administration Acetaminophen Confirm 04/10/17 00:04 Tylenol 325 Mg Administered 04/10/17 00:05 Dose 650 mg .ROUTE .STK-MED ONE Amoxicillin 500 mg 04/09/17 23:46 04/10/17 00:08 Amoxil 500 Mg PO 04/09/17 23:47 500 mg STAT ONE Administration Amoxicillin Confirm 04/10/17 00:04 Amoxil 500 Mg Administered 04/10/17 00:05 Dose 500 mg .ROUTE .STK-MED ONE Amoxicillin Confirm 04/10/17 00:07 Amoxil 500 Mg Administered 04/10/17 00:08 Dose 500 mg .ROUTE .STK-MED ONE Lab/Rad Data: Laboratory Results 04/09/17 Range/Units 23:48 Ur Collection Type VOID Urine Color YELLOW (YELLOW) Urine Appearance SLIGHTLY CLOUDY (CLEAR) Urine pH 6.0 (5-6) Ur Specific [place] 1.020 (1.005-1.025) Urine Protein NEGATIVE (Negative) Urine Ketones NEGATIVE (NEGATIVE) Urine Blood 50 (0-5) Obed/ul Urine Nitrite NEGATIVE (NEGATIVE) Urine Bilirubin NEGATIVE (NEGATIVE) Urine Urobilinogen NORMAL (0-1) mg/dL Ur Leukocyte Esterase 1+ (NEGATIVE) Urine Microscopic RBC 5-10 (0-2) /HPF Urine Microscopic WBC 10-15 (0-5) /HPF Ur Epithelial Cells MODERATE (FEW) /HPF Amorphous Crystals FEW (NEGATIVE) /HPF Urine Bacteria MANY (NEGATIVE) /HPF Urine Mucus SLIGHT (NEGATIVE) /HPF Urine Culture Reflexed YES (NO) Urine Glucose NEGATIVE (NEGATIVE) mg/dL Specimen Received 04/09/17 2350 - Progress Progress Note: 04/09/17 23:45 TM appears normal. ?left TMJ. ? cervical lymphadenitis. She would like to try abtx. Advised APAP, ice or heat packs and follow up Dr Zhao. 04/10/17 00:25 Urine neg for protein. Will empirically try amoxil. She was advised follow up. FHR 150's per RN. Counseled pt/family regarding: diagnosis, need for follow-up - Departure Time of Disposition: 00:25 Departure Disposition: Home Clinical Impression: Otalgia, left ear, with 14 completed weeks gestation Condition: Stable Critical Care Time: No Referrals: JEANINE HYMAN [Primary Care Provider] - Instructions: Ear Pain, -- Discomforts and Remedies Additional Instructions: Try warm or cool packs to left ear. Rx amoxil to [facility]. Follow up this week with Dr Ramsay. Tylenol as directed every 6 hours for discomfort. Prescriptions: Amoxicillin 500 mg Cap [Amoxil 500 mg] 1 cap PO TID #30 capsule
[2017-04-09] MEDS ORDERED: AMOXIL 500 MG PO ONE (23:46)
[2017-04-09] MEDS ORDERED: TYLENOL 325 MG PO ONE (23:46)
[2017-04-10] MEDS ORDERED: AMOXIL 500 MG ONE ×2 (00:04→00:07)
[2017-04-10] MEDS ORDERED: TYLENOL 325 MG ONE (00:04)
[2017-04-10 00:08] LABS: Bacteria MANY /HPF (NEGATIVE); Bilirubin NEGATIVE (NEGATIVE); Blood 50 Ery/ul (0-5); COMPLETE URINE MICROSCOPIC? YES; Collection Type VOID; Epithelial Cells MODERATE /HPF (FEW); Glucose NEGATIVE (NEGATIVE); Leukocyte Esterase 1+ (NEGATIVE); Mucus SLIGHT /HPF (NEGATIVE)
[2017-04-10 00:09] LABS: ADD URINE CULTURE? YES (NO)
[2017-04-10 00:15] VITALS: O2SAT 100
[2017-04-10 00:44] VITALS: BP 143/71; PULSE 79
== END 2017-04-10 00:44 | disposition home or self-care (01) ==
LOC: ED 23:17
DX: H92.02 Otalgia, left ear (principal); Z33.1 Pregnant state, incidental; Z3A.14 14 weeks gestation of pregnancy
CPT/HCPCS: 81000; 81002; 87086; 99283; A9270-GY

== ENCOUNTER 2017-06-20 16:42 | Emergency (ER) | payer OTHER ==
[2017-06-20 16:57] VITALS: BP 142/78; O2SAT 97
--- NOTE | 2017-06-20 16:59 | ERPHSYRPT ---
- History of Present Illness Time Seen by Provider: 06/20/17 16:43 Source: patient, family Exam Limitations: no limitations Physician History: patient with SOB and discomfort when takes a deep breath on the right; feels like can't get her breath; onset yesterday; no travel; no exposures; no sore throat or fever; cough mild productive clear phlegm; no prior hx; non-smoker; no leg pain; no hx DVT or PE; - 25 weeks- sonogram last week all ok Timing/Duration: today (worse), yesterday (onset), gradual onset, worse Activities at Onset: rest Severity of Dyspnea-Max: moderate Severity of Dyspnea-Current: moderate Possible Cause: no prior episodes Modifying Factors: Improves With: rest Associated Symptoms: anxiety, cough (non-productive), chest pain/discomfort ( with deep breath), heart racing (occassionally), painful breathing, productive cough (clear), No edema, No fever, No insomnia, No loss of appetite, No hemoptysis, No calf pain, No leg swelling International travel in last 2 weeks: No Allergies/Adverse Reactions: No Known Drug Allergies Allergy (Verified 06/20/17 16:57) Home Medications: Sertraline HCl [Zoloft] 100 mg PO DAILY 07/01/16 [History] Hx Tetanus, Diphtheria Vaccination/Date Given: No Hx Influenza Vaccination/Date Given: Yes (2015) Hx Pneumococcal Vaccination/Date Given: No - Review of Systems Constitutional: No Symptoms Eyes: No Symptoms Ears, Nose, & Throat: No Symptoms Respiratory: Cough (non-productive except small amount clear), Dyspnea, Dyspnea on Exertion (GRAJEDA), Wheezing Cardiac: Chest Pain (with deep breath), Palpitations (occassionally), No Edema, No Syncope, No Orthopnea Abdominal/Gastrointestinal: No Abdominal Pain, No Nausea, No Vomiting, No Diarrhea, No Constipation Genitourinary Symptoms: No Symptoms Musculoskeletal: No Symptoms Skin: No Symptoms Neurological: No Symptoms Psychological: Anxiety, No Alcohol Abuse, No Drug Abuse, No Depression, No Suicidal Ideations, No Homicidal Ideations Endocrine: No Symptoms Hematologic/Lymphatic: No Symptoms Immunological/Allergic: No Symptoms - Past Medical History Pertinent Past Medical History: Yes Neurological History: No Pertinent History ENT History: No Pertinent History Cardiac History: No Pertinent History Respiratory History: No Pertinent History Endocrine Medical History: No Pertinent History Musculoskeletal History: No Pertinent History GI Medical History: No Pertinent History History: Other Psycho-Social History: Anxiety Female Reproductive Disorders: No Pertinent History Other Medical History: KIDNEY STONES, preeclampsia - Past Surgical History Past Surgical History: No Neuro Surgical History: No Pertinent History Cardiac: No Pertinent History Respiratory: No Pertinent History Gastrointestinal: No Pertinent History Genitourinary: No Pertinent History Musculoskeletal: No Pertinent History Female Surgical History: No Pertinent History Other Surgical History: WISDOM TEETH. KIDNEY STONE SURGICALLY REMOVED - Social History Smoking Status: Former smoker (quit when found out again) How long have you smoked: 10 months Exposure to second hand smoke: No Drug Use: none Patient Lives Alone: No Significant Family History: no pertinent family hx - Female History Hx Now: Yes (25 weeks; no problems; ) Expected Date of Delivery: 10/08/17 - Nursing Vital Signs Nursing Vital Signs: Initial Vital Signs Temperature 98.2 F 06/20/17 16:52 Pulse Rate 105 H 06/20/17 16:52 Respiratory Rate 18 06/20/17 16:52 Blood Pressure 142/78 06/20/17 16:52 O2 Sat by Pulse Oximetry 97 06/20/17 16:52 Pain Scale Pain Intensity 3 - Physical Exam General Appearance: mild distress (tachypnea), alert, anxiety, obese Eye Exam: PERRL/EOMI, eyes nml inspection, photophobia Ears, Nose, Throat Exam: hearing grossly normal, normal ENT inspection, normal pharynx Neck Exam: normal inspection, non-tender, supple, full range of motion, No carotid bruit, No JVD Respiratory Exam: normal breath sounds, lungs clear, respiratory distress (mild hyperventilation), airway intact, wheezing (faint end expiratory), No chest tenderness, No accessory muscle use, No prolonged expirations, No crackles/rales , No rhonchi, No stridor, No pleural rub Cardiovascular/Chest Exam: normal heart sounds, regular rate/rhythm, normal peripheral pulses, No murmur, No edema, No JVD Abdominal/Gastrointestinal Exam: soft, normal bowel sounds, distention (25 weeks ), organomegaly (25 weeks ), No tenderness, No guarding, No rebound Rectal Exam: deferred Extremity Exam: non-tender, normal range of motion, normal inspection, no pedal edema, No calf tenderness, No swelling, No kandy's sign Peripheral Pulses Exam: carotid (R): 4+, carotid (L): 4+, femoral (R): 4+, femoral (L): 4+, dorsalis-pedis (R): 3+, dorsalis-pedis (L): 3+ Neurologic Exam: alert, oriented x 3, cooperative, salesperson women's dresses II-XII nml as tested, normal mood/affect, nml cerebellar function, nml station & gait, sensation nml Skin Exam: normal color, warm, dry, No rash, No petechiae, No cyanosis Lymphatic Exam: adenopathy SpO2 Interpretation: normal SpO2: 97 Oxygen Delivery: Room Air - Course Nursing assessment & vital signs reviewed: Yes - Radiology Exams Chest X-ray Interpretation: Reviewed by me, Teleradiologist Report, No Pneumonia, No Pneumothorax, Nml Heart Size, No Infiltrates, Other (discoid atelectasis lingula ) Ordered Tests: Active Orders 24 hr Category Date Time Status Pulse Oximetry (ED) STAT Care 06/20/17 16:52 Active CHEST 1 VIEW (PORTABLE) Stat Exams 06/20/17 16:53 Completed BMP Stat Lab 06/20/17 17:05 Completed CBC W DIFF Stat Lab 06/20/17 17:05 Completed D-DIMER QUANTITATION Stat Lab 06/20/17 17:05 Completed Peak Expiratory Flow Rate ONCE RT 06/20/17 16:52 Completed Respiratory Nebulizer STAT RT 06/20/17 17:07 Completed Medication Summary Discontinued Medications Generic Name Dose Route Start Last Admin Trade Name Freq PRN Reason Stop Dose Admin Albuterol/Ipratropium 3 ml 06/20/17 17:06 06/20/17 17:12 Duoneb 0.5-3 Mg/3 Ml Neb IH 06/20/17 17:07 3 ml STAT ONE Administration Albuterol/Ipratropium Confirm 06/20/17 17:05 Duoneb 0.5-3 Mg/3 Ml Neb Administered 06/20/17 17:06 Dose 3 ml IH .STK-MED ONE Lab/Rad Data: Laboratory Result Diagrams 06/20/17 17:05 06/20/17 17:05 Laboratory Results 06/20/17 06/20/17 06/20/17 Range/Units 17:05 17:05 17:05 WBC (4.0-10.5) K/mm3 RBC (4.1-5.4) M/mm3 Hgb (12.0-16.0) gm/dl Hct (35-47) % MCV (78-100) fl MCH (26-32) pg MCHC (32-36) g/dl RDW (11.5-14.0) % Plt Count (150-450) K/mm3 MPV (6-9.5) fl Gran % (36.0-66.0) % Lymphocytes % (24.0-44.0) % Monocytes % (0.0-12.0) % Eosinophils % (0.00-5.0) % Basophils % (0.0-0.4) % Basophils # (0-0.4) D-Dimer 414.93 (0-500) ng/mL Sodium 136 L (137-145) mmol/L Potassium 3.9 (3.5-5.1) mmol/L Chloride 105 (98-107) mEq/L Carbon Dioxide 19 L (22-30) mmol/L Anion Gap 15.1 H (5-15) MEQ/L BUN 10 (7-17) mg/dl Creatinine 0.49 L (0.52-1.04) mg/dl Estimated GFR > 60 ML/MIN Glucose 104 (74-106) mg/dL Calcium 9.2 (8.4-10.2) mg/dL Influenza Type A Ag NEGATIVE (NEGATIVE) Influenza Type B Ag NEGATIVE (NEGATIVE) RSV (PCR) NEGATIVE (Negative) 06/20/17 Range/Units 17:05 WBC 14.1 H (4.0-10.5) K/mm3 RBC 4.31 (4.1-5.4) M/mm3 Hgb 12.0 (12.0-16.0) gm/dl Hct 36.2 (35-47) % MCV 84.0 (78-100) fl MCH 27.8 (26-32) pg MCHC 33.1 (32-36) g/dl RDW 14.1 H (11.5-14.0) % Plt Count 262 (150-450) K/mm3 MPV 11.3 H (6-9.5) fl Gran % 77.9 H (36.0-66.0) % Lymphocytes % 13.4 L (24.0-44.0) % Monocytes % 7.1 (0.0-12.0) % Eosinophils % 1.5 (0.00-5.0) % Basophils % 0.1 (0.0-0.4) % Basophils # 0.02 (0-0.4) D-Dimer (0-500) ng/mL Sodium (137-145) mmol/L Potassium (3.5-5.1) mmol/L Chloride (98-107) mEq/L Carbon Dioxide (22-30) mmol/L Anion Gap (5-15) MEQ/L BUN (7-17) mg/dl Creatinine (0.52-1.04) mg/dl Estimated GFR ML/MIN Glucose (74-106) mg/dL Calcium (8.4-10.2) mg/dL Influenza Type A Ag (NEGATIVE) Influenza Type B Ag (NEGATIVE) RSV (PCR) (Negative) reviewed - Progress Progress: re-examined (after resp treatment) Air Movement: fair Progress Note: 06/20/17 17:04 peak flow 348 before; lab and shielded xr pending; will give duo neb and recheck 06/20/17 17:33 recheck post duoneb treatment; peak flow post 369; imporved BS bilater; no dyspnea or tachypnea; no wheezing; cbc elevated wbc with slight left shift; cxr shows discoid atelectasis of lingula; discussed findgins and treatment 06/20/17 18:02 recheck and BS; renal function and D dimer wnl; discussed findings with patient and family and instructions given 06/20/17 18:51 INfluenza all neg; rechecked and improved Counseled pt/family regarding: lab results, diagnosis, need for follow-up, rad results - Departure Time of Disposition: 18:03 Departure Disposition: Home Clinical Impression: Acute bronchitis, 25 weeks gestation of , dyspnea resolved, Pleurisy Condition: Stable Critical Care Time: No Referrals: JEANINE HYMAN [Primary Care Provider] - Instructions: Cough, Adult (DC) Additional Instructions: rest; clear fluids; vaporizer; follow up lmd recheck; tylenol/motrin otc Follow-up with family doctor as directed. Call for appointment. Return if any problems. If you smoke please stop. Call or follow up with your family doctor for assistance if you need it to stop. Please wear your seatbelt when driving. Have a nice day. Thank you for allowing us to participate in your care today. :o) Dr Chris Kay Prescriptions: Cephalexin Mh 250 mg [Keflex 250 mg] 250 mg PO QID #40 capsule Cephalexin Mh 250 mg [Keflex 250 mg] 250 mg PO QID #40 capsule
[2017-06-20] MEDS ORDERED: DUONEB 0.5-3 MG/3 ml Neb IH ONE ×2 (17:05→17:06)
[2017-06-20 17:12] LABS: BASOPHIL % 0.1 % (0.0-0.4); Basophil (Absolute #) 0.02 (0-0.4); Eosinophil % 1.5 % (0.00-5.0); Eosinophil (Absolute #) 0.21 (0-0.5); Granulocyte Absolute (ANC) 10.95 (1.4-6.9); Granulocytes % 77.9 % (36.0-66.0); Hematocrit 36.2 % (35-47); Lymphocyte (Absolute #) 1.88 (1.0-4.6); Lymphocytes % 13.4 % (24.0-44.0); Mean Corpuscular Hemoglobin 27.8 pg (26-32); Mean Corpuscular Hgb Concent. 33.1 g/dl (32-36); Mean Platelet Volume 11.3 fl (6-9.5); Monocytes % 7.1 % (0.0-12.0); Platelet Count 262 K/mm3 (150-450); Red Blood Count 4.31 M/mm3 (4.1-5.4); Red Cell Distribution Width 14.1 % (11.5-14.0); White Blood Count 14.1 K/mm3 (4.0-10.5)
--- NOTE | 2017-06-20 17:20 | XRAY ---
Indication: Short of breath. Cough. Comparison: August 16, 2016. Portable chest now demonstrates minimal lingular discoid atelectasis/scarring. Remaining heart, lungs, and bony thorax normal.
[2017-06-20 17:21] VITALS: PULSE 96
[2017-06-20 17:24] LABS: ANION GAP 15.1 MEQ/L (5-15); BLOOD UREA NITROGEN 10 mg/dl (7-17); CHLORIDE 105 mEq/L (98-107); Calcium 9.2 mg/dL (8.4-10.2); Carbon Dioxide 19 mmol/L (22-30); Creatinine 1 0.49 mg/dl (0.52-1.04); Glucose 104 mg/dL (74-106); Potassium 3.9 mmol/L (3.5-5.1); SODIUM 136 mmol/L (137-145)
[2017-06-20 18:33] LABS: INFLUENZA A NEGATIVE (NEGATIVE); INFLUENZA B NEGATIVE (NEGATIVE); RESPIRATORY SYNCTIAL VIRUS NEGATIVE (Negative)
== END 2017-06-20 18:55 | disposition home or self-care (01) ==
LOC: ED 16:42
DX: J20.9 Acute bronchitis, unspecified (principal); Z33.1 Pregnant state, incidental; R06.00 Dyspnea, unspecified; R09.1 Pleurisy
CPT/HCPCS: 36415; 71045; 80048; 85025; 85379; 87631; 94150; 94640; 99283; A9270-GY

== ENCOUNTER 2017-06-30 15:57 | Observation (INO) | payer OTHER ==
[2017-06-30 16:37] VITALS: BP 134/71; PULSE 103
[2017-06-30 17:28] LABS: Appearance HAZY (CLEAR); Bilirubin NEGATIVE (NEGATIVE); Blood 50 Ery/ul (0-5); Glucose NEGATIVE (NEGATIVE); Ketones NEGATIVE (NEGATIVE); Leukocyte Esterase 1+ (NEGATIVE); Nitrite NEGATIVE (NEGATIVE); Protein,Urine Dip NEGATIVE (Negative); Specific Gravity 1.015 (1.005-1.025); Urobilinogen NORMAL mg/dL (0-1)
[2017-06-30 17:31] LABS: Bacteria RARE /HPF (NEGATIVE); Epithelial Cells FEW /HPF (FEW); WBC 0-2 /HPF (0-5)
[2017-06-30 17:32] LABS: Amourphous Crystal FEW /HPF (NEGATIVE)
== END 2017-06-30 17:45 | disposition home or self-care (01) ==
LOC: OB 15:57 → UNDOADMOB 15:57 → UNDODISOB 17:45
PROVIDERS: ADMIT Family Medicine; ATTEND Family Medicine
DX: Z34.81 Encounter for supervision of other normal pregnancy, first trimester (principal)
CPT/HCPCS: 81000; G0378

== ENCOUNTER 2017-08-22 20:51 | Observation (INO) | payer OTHER ==
[2017-08-22] MEDS ORDERED: BRETHINE 1 MG/ML SQ ONE (22:13)
[2017-08-22] MEDS ORDERED: Lactated Ringers 1,000 ML IV SCH (22:30)
[2017-08-22 23:28] VITALS: O2SAT 98
[2017-08-22] MEDS: TYLENOL 325 MG PO PRN (23:53)
[2017-08-23] MEDS: Lactated Ringers 1,000 ML IV SCH ×2 (00:04→07:41)
[2017-08-23] MEDS ORDERED: BRETHINE 1 MG/ML SQ ONE (01:00)
[2017-08-23 09:02] LABS: Appearance CLEAR (CLEAR); Bilirubin NEGATIVE (NEGATIVE); Glucose NEGATIVE (NEGATIVE); Ketones NEGATIVE (NEGATIVE); Leukocyte Esterase TRACE (NEGATIVE); Nitrite NEGATIVE (NEGATIVE); Protein,Urine Dip NEGATIVE (Negative); Specific Gravity 1.015 (1.005-1.025); Urobilinogen NORMAL mg/dL (0-1)
[2017-08-23 09:03] LABS: Amourphous Crystal FEW /HPF (NEGATIVE); Bacteria MODERATE /HPF (NEGATIVE); Blood NEGATIVE Ery/ul (0-5); Epithelial Cells MODERATE /HPF (FEW)
[2017-08-23] MEDS ORDERED: OB EPIDURAL NAROPIN/SUFENTANIL IN NACL EPIDURAL PRN (09:04)
[2017-08-23] MEDS ORDERED: Ephedrine Sulfate 50 MG/ML IV PRN (09:04)
[2017-08-23] MEDS ORDERED: Lactated Ringers 1,000 ML IV ONE (09:04)
[2017-08-23] MEDS ORDERED: Celestone Soluspan 6MG/ML IM SCH (09:30)
--- NOTE | 2017-08-23 09:32 | PCM.SSS ---
History of Present Illness - Chief Complaint Chief Complaint: OB check History of Present Illness: is a 22 year old female at 33wks EGA here c/o contractions, received terbutaline x 2 doses last night with improvement. SVE closed per nursing. still c/o tightening and pressure in uterus. - Review of Systems Constitutional: No Fever, No Chills Ears, Nose, & Throat: No Symptoms Respiratory: No Cough, No Short Of Breath Cardiac: No Chest Pain, No Edema, No Syncope Abdominal/Gastrointestinal: No Abdominal Pain, No Nausea, No Vomiting, No Diarrhea Skin: No Rash All Other Systems: Reviewed and Negative Medications & Allergies Home Medications: Home Medication List Sertraline HCl [Zoloft] 100 mg PO DAILY 07/01/16 [History Confirmed 06/30/17] Cephalexin Mh 250 mg [Keflex 250 mg] 250 mg PO QID #40 capsule 06/20/17 [Rx Confirmed 06/30/17] Nifedipine 10 mg [Procardia 10 mg] 10 mg PO TID #63 capsule 08/23/17 [Rx] Allergies/Adverse Reactions: Allergies Allergy/AdvReac Type Severity Reaction Status Date / Time No Known Drug Allergies Allergy Verified 06/30/17 16:38 - Past Medical History Past Medical History: Yes Neurological History: No Pertinent History ENT History: No Pertinent History Cardiac History: No Pertinent History Respiratory History: No Pertinent History Endocrine Medical History: No Pertinent History Musculoskelatal History: No Pertinent History GI Medical History: No Pertinent History History: Other Pyscho-Social History: Anxiety Reproductive Disorders: No Pertinent History Comment: KIDNEY STONES, preeclampsia - Past Surgical History Past Surgical History: No Neuro Surgical History: No Pertinent History Cardiac History: No Pertinent History Respiratory Surgery: No Pertinent History GI Surgical History: No Pertinent History Genitourinary Surgical Hx: No Pertinent History Musculskeletal Surgical Hx: No Pertinent History Female Surgical History: No Pertinent History Other Surgical History: WISDOM TEETH. KIDNEY STONE SURGICALLY REMOVED - Social History Smoking Status: Former smoker How long have you smoked: 10 months Exposure to second hand smoke: No Alcohol: None Drug Use: none Significant Family History: no pertinent family hx - Physical Exam Vital Signs: Vital Signs - 24 hr Temp Pulse Resp BP BP Pulse Ox 08/23/17 06:00 98 H 20 108/62 98 08/23/17 04:00 91 H 20 98 08/22/17 23:03 98.1 F 125 H 20 137/85 98 General Appearance: no apparent distress, alert Eye Exam: PERRL/EOMI, eyes nml inspection Ears, Nose, Throat Exam: normal ENT inspection, TMs normal, pharynx normal, moist mucous membranes Neck Exam: normal inspection, non-tender, supple, full range of motion Respiratory Exam: normal breath sounds, lungs clear, No respiratory distress Cardiovascular Exam: regular rate/rhythm, normal heart sounds, normal peripheral pulses Gastrointestinal/Abdomen Exam: soft, No tenderness Extremity Exam: normal inspection, normal range of motion, pelvis stable Skin Exam: normal color, warm, dry, No rash Results - Labs Lab/Micro Results: Lab Results-Last 24 Hours 08/23/17 Range/Units 08:43 Ur Collection Type CCMS Urine Color STRAW (YELLOW) Urine Appearance CLEAR (CLEAR) Urine pH 7.0 (5-6) Ur Specific [place] 1.015 (1.005-1.025) Urine Protein NEGATIVE (Negative) Urine Ketones NEGATIVE (NEGATIVE) Urine Blood NEGATIVE (0-5) Obed/ul Urine Nitrite NEGATIVE (NEGATIVE) Urine Bilirubin NEGATIVE (NEGATIVE) Urine Urobilinogen NORMAL (0-1) mg/dL Ur Leukocyte Esterase TRACE (NEGATIVE) Urine Microscopic RBC 2-5 (0-2) /HPF Urine Microscopic WBC 5-10 (0-5) /HPF Ur Epithelial Cells MODERATE (FEW) /HPF Amorphous Crystals FEW (NEGATIVE) /HPF Urine Bacteria MODERATE (NEGATIVE) /HPF Urine Glucose NEGATIVE (NEGATIVE) mg/dL Specimen Received 08/23 0850 Assessment/Plan (1) contractions Current Visit: Yes Status: Acute Assessment & Plan: discussed plan of care with patient, will give po procardia this am and monitor. will give celestone 12mg IM x 2 doses. Code(s): O47.9 - FALSE LABOR, UNSPECIFIED Hospital Summary - Vitals & Intake/Output Vital Signs: Vital Signs Temperature 98.1 F 08/22/17 23:03 Pulse Rate 98 H 08/23/17 06:00 Respiratory Rate 20 08/23/17 06:00 Blood Pressure 108/62 08/23/17 06:00 O2 Sat by Pulse Oximetry 98 08/23/17 06:00 Intake & Output: Intake & Output 08/20/17 08/21/17 08/22/17 05/10/18 11:59 11:59 11:59 11:59 Intake Total 480 Balance 480 Weight 130.635 kg - Lab Lab Results-Last 24 Hrs: Lab Results-Last 24 Hours 08/23/17 Range/Units 08:43 Ur Collection Type CCMS Urine Color STRAW (YELLOW) Urine Appearance CLEAR (CLEAR) Urine pH 7.0 (5-6) Ur Specific [place] 1.015 (1.005-1.025) Urine Protein NEGATIVE (Negative) Urine Ketones NEGATIVE (NEGATIVE) Urine Blood NEGATIVE (0-5) Obed/ul Urine Nitrite NEGATIVE (NEGATIVE) Urine Bilirubin NEGATIVE (NEGATIVE) Urine Urobilinogen NORMAL (0-1) mg/dL Ur Leukocyte Esterase TRACE (NEGATIVE) Urine Microscopic RBC 2-5 (0-2) /HPF Urine Microscopic WBC 5-10 (0-5) /HPF Ur Epithelial Cells MODERATE (FEW) /HPF Amorphous Crystals FEW (NEGATIVE) /HPF Urine Bacteria MODERATE (NEGATIVE) /HPF Urine Glucose NEGATIVE (NEGATIVE) mg/dL Specimen Received 08/23 0850 - Discharge Disposition: Home, Self-Care Condition: Stable Prescriptions: New Nifedipine 10 mg [Procardia 10 mg] 10 mg PO TID #63 capsule Continue Sertraline HCl [Zoloft] 100 mg PO DAILY Cephalexin Mh 250 mg [Keflex 250 mg] 250 mg PO QID #40 capsule Follow up with: JEANINE HYMAN [Primary Care Provider] - 1 Week
[2017-08-23] MEDS ORDERED: PROCARDIA 10 MG PO SCH (10:00)
[2017-08-23] MEDS: TYLENOL 325 MG PO PRN (11:15)
[2017-08-23 12:58] VITALS: BP 130/58; PULSE 77
== END 2017-08-23 13:00 | disposition home or self-care (01) ==
LOC: MED SURG 20:51
PROVIDERS: ADMIT Family Medicine; ATTEND Family Medicine
DX: O47.03 False labor before 37 completed weeks of gestation, third trimester (principal); Z3A.33 33 weeks gestation of pregnancy
CPT/HCPCS: 81000; G0378; 96372; J0702; A9270-GY

== ENCOUNTER 2017-08-24 20:51 | Observation (INO) | payer OTHER ==
[2017-08-24] MEDS ORDERED: TYLENOL 325 MG PO PRN (21:35)
[2017-08-24] MEDS ORDERED: PROCARDIA 10 MG PO ONE (22:45)
[2017-08-24 22:51] LABS: Appearance CLEAR (CLEAR); Bilirubin NEGATIVE (NEGATIVE); Blood NEGATIVE Ery/ul (0-5); Glucose NEGATIVE (NEGATIVE); Ketones TRACE (NEGATIVE); Leukocyte Esterase NEGATIVE (NEGATIVE); Nitrite NEGATIVE (NEGATIVE); Protein,Urine Dip NEGATIVE (Negative); Specific Gravity 1.015 (1.005-1.025); Urobilinogen NORMAL mg/dL (0-1)
[2017-08-24 23:17] LABS: Granulocyte Absolute (ANC) 13.03 (1.4-6.9); Hematocrit 36.2 % (35-47); Hemoglobin 11.9 gm/dl (12.0-16.0); Mean Cell Volume 83.8 fl (78-100); Mean Corpuscular Hemoglobin 27.5 pg (26-32); Mean Corpuscular Hgb Concent. 32.9 g/dl (32-36); Mean Platelet Volume 11.4 fl (6-9.5); Platelet Count 229 K/mm3 (150-450); Red Blood Count 4.32 M/mm3 (4.1-5.4); Red Cell Distribution Width 14.4 % (11.5-14.0); White Blood Count 14.4 K/mm3 (4.0-10.5)
[2017-08-24 23:32] LABS: ALBUMIN 3.6 g/dL (3.5-5.0); ALKALINE PHOSPHATASE 114 U/L (38-126); ANION GAP 14.9 MEQ/L (5-15); BLOOD UREA NITROGEN 10 mg/dL (7-17); CHLORIDE 105 mmol/L (98-107); Calcium 9.6 mg/dL (8.4-10.2); Carbon Dioxide 20 mmol/L (22-30); Creatinine 1 0.48 mg/dL (0.52-1.04); Glucose 170 mg/dL (74-106); Potassium 3.8 mmol/L (3.5-5.1); SGOT/AST 15 U/L (14-36); SODIUM 136 mmol/L (137-145); Total Protein 6.5 g/dL (6.3-8.2)
[2017-08-24 23:39] LABS: SGPT/ALT 16 U/L (0-35)
[2017-08-25 02:33] LABS: Lymphocytes 10 % (24-44); Monocyte 3 % (0.0-12.0); Neutrophils 87 % (36.0-66.0); Platelet Estimate NORMAL (NORMAL); Total Cells Counted 100
[2017-08-25 06:15] VITALS: BP 113/55; PULSE 80
--- NOTE | 2017-08-25 16:15 | XRAY ---
Indication: Lower abdominal pain. Two-dimensional Limited OB ultrasound performed. Comparison: June 08, 2017. Again there is a single viable intrauterine now in cephalic presentation. heart rate 20 and 25 BPM. Visualized head, spine, stomach, kidneys, and bladder are unremarkable. Placenta is again posterior without abruption/previa. BPD measures 8.86 cm corresponding to 35 weeks 6 days. HC measures 32.10 cm corresponding to 36 weeks 2 days. AC measures 32.41 cm corresponding to 36 weeks 2 days. FL measures 6.95 cm corresponding to 35 weeks 5 days. Estimated weight 6 lbs. 4 oz., +/-15 ounces. Approximately 94 percentile. ROXANN is 6.5 cm. Impression: Again single viable intrauterine with mean gestational age 36 weeks 0 days. There has been progression of the with fetus now measuring 14 days larger than previous exam.
== END 2017-08-25 13:10 | disposition home or self-care (01) ==
LOC: MED SURG 20:51
PROVIDERS: ADMIT Family Medicine; ATTEND Family Medicine
DX: O26.893 Other specified pregnancy related conditions, third trimester (principal); Z3A.36 36 weeks gestation of pregnancy; R10.30 Lower abdominal pain, unspecified
CPT/HCPCS: 36415; 76805; 80053; 81002; 85025; G0378; 96372; J0702; A9270-GY

== ENCOUNTER 2017-08-26 22:52 | Observation (INO) | payer OTHER ==
[2017-08-26 23:54] VITALS: BP 124/67; PULSE 88
[2017-08-27 00:30] LABS: Amphetamine,Urine NEGATIVE (NEGATIVE); Barbiturate,Urine NEGATIVE (NEGATIVE); Benzodiazepine,Urine NEGATIVE (NEGATIVE); Cocaine,Urine NEGATIVE (NEGATIVE); Methadone,Urine NEGATIVE (NEGATIVE); Opiate,Urine NEGATIVE (NEGATIVE); PCP,Urine NEGATIVE (NEGATIVE); THC,Urine NEGATIVE (NEGATIVE)
== END 2017-08-27 01:50 | disposition home or self-care (01) ==
LOC: OB 22:52 → UNDOADMOB 22:52 → UNDODISOB 08-27 01:50
PROVIDERS: ADMIT Family Medicine; ATTEND Family Medicine
DX: O26.893 Other specified pregnancy related conditions, third trimester (principal); Z3A.34 34 weeks gestation of pregnancy; R10.9 Unspecified abdominal pain; R31.9 Hematuria, unspecified
CPT/HCPCS: 80307; G0378

== ENCOUNTER 2017-09-03 14:42 | Observation (INO) | payer OTHER ==
[2017-09-03 15:08] VITALS: BP 141/79; PULSE 114
[2017-09-03] MEDS ORDERED: Lactated Ringers 1,000 ML IV SCH (16:00)
== END 2017-09-03 18:40 | disposition home or self-care (01) ==
LOC: OB 14:42
PROVIDERS: ADMIT Family Medicine; ATTEND Family Medicine
DX: Z34.83 Encounter for supervision of other normal pregnancy, third trimester (principal)
CPT/HCPCS: G0378 ×2

== ENCOUNTER 2017-09-11 11:54 | Observation (INO) | payer OTHER ==
[2017-09-11 12:21] VITALS: BP 138/63; PULSE 105
[2017-09-11] MEDS ORDERED: Sodium Chloride 0.9% 1000 ML 1,000 ML IV STA (13:38)
[2017-09-11 14:42] LABS: Appearance HAZY (CLEAR); Bilirubin NEGATIVE (NEGATIVE); Blood NEGATIVE Ery/ul (0-5); Glucose NEGATIVE (NEGATIVE); Ketones NEGATIVE (NEGATIVE); Leukocyte Esterase TRACE (NEGATIVE); Nitrite NEGATIVE (NEGATIVE); Protein,Urine Dip TRACE (Negative); Specific Gravity 1.015 (1.005-1.025); Urobilinogen NORMAL mg/dL (0-1)
[2017-09-11 14:43] LABS: Bacteria FEW /HPF (NEGATIVE); Epithelial Cells FEW /HPF (FEW)
== END 2017-09-11 15:47 | disposition home or self-care (01) ==
LOC: OB 11:54
PROVIDERS: ADMIT Family Medicine; ATTEND Family Medicine
DX: Z34.82 Encounter for supervision of other normal pregnancy, second trimester (principal)
CPT/HCPCS: 81000; G0378

== ENCOUNTER 2017-09-19 19:32 | Observation (INO) | payer OTHER ==
[2017-09-19] MEDS ORDERED: Zofran 4 MG/2 ML VIAL IV ONE (20:20)
[2017-09-19] MEDS ORDERED: TYLENOL EXTRA STRENGTH 500 MG PO PRN (20:22)
[2017-09-19] MEDS ORDERED: Zofran 4 MG/2 ML VIAL ONE (20:26)
[2017-09-19] MEDS ORDERED: TYLENOL EXTRA STRENGTH 500 MG ONE (20:26)
[2017-09-19] MEDS ORDERED: Lactated Ringers 1,000 ML IV ONE (20:26)
[2017-09-19] MEDS ORDERED: Lactated Ringers 1,000 ML IV SCH (20:30)
[2017-09-19 21:23] VITALS: O2SAT 98
[2017-09-19 22:46] LABS: Appearance CLEAR (CLEAR)
[2017-09-19 22:47] LABS: Bilirubin NEGATIVE (NEGATIVE); Blood NEGATIVE Ery/ul (0-5); Glucose NEGATIVE (NEGATIVE); Ketones NEGATIVE (NEGATIVE); Leukocyte Esterase NEGATIVE (NEGATIVE); Nitrite NEGATIVE (NEGATIVE); Protein,Urine Dip NEGATIVE (Negative); Specific Gravity 1.025 (1.005-1.025); Urobilinogen NORMAL mg/dL (0-1)
[2017-09-20 00:43] VITALS: BP 143/81; PULSE 88
== END 2017-09-20 00:13 | disposition home or self-care (01) ==
LOC: OB 19:32
PROVIDERS: ADMIT Family Medicine; ATTEND Family Medicine
DX: Z34.83 Encounter for supervision of other normal pregnancy, third trimester (principal)
CPT/HCPCS: 81002; G0378; J2405; A9270-GY

== ENCOUNTER 2017-09-30 08:00 | Inpatient (IN) | payer OTHER ==
[2017-09-30] MEDS ORDERED: XYLOCAINE 1% HCL 20 ML MDV IJ PRN (17:48)
[2017-09-30] MEDS ORDERED: BRETHINE 1 MG/ML SQ PRN (17:48)
[2017-09-30 17:56] LABS: BASOPHIL % 0.1 % (0.0-0.4); Basophil (Absolute #) 0.01 (0-0.4); Eosinophil % 0.7 % (0.00-5.0); Eosinophil (Absolute #) 0.07 (0-0.5); Granulocyte Absolute (ANC) 7.29 (1.4-6.9); Granulocytes % 74.7 % (36.0-66.0); Hematocrit 36.5 % (35-47); Hemoglobin 12.3 gm/dl (12.0-16.0); Lymphocytes % 15.4 % (24.0-44.0); Mean Cell Volume 82.2 fl (78-100); Mean Corpuscular Hemoglobin 27.7 pg (26-32); Mean Corpuscular Hgb Concent. 33.7 g/dl (32-36); Mean Platelet Volume 12.3 fl (6-9.5); Monocyte (Absolute #) 0.89 (0.0-1.3); Monocytes % 9.1 % (0.0-12.0); Platelet Count 258 K/mm3 (150-450); Red Blood Count 4.44 M/mm3 (4.1-5.4); Red Cell Distribution Width 15.1 % (11.5-14.0); White Blood Count 9.8 K/mm3 (4.0-10.5)
[2017-09-30] MEDS ORDERED: Cervidil 10 MG VAG SCH (18:00)
[2017-09-30] MEDS ORDERED: PITOCIN 30 UNITS/ LR 500 ML 500 ML IV SCH ×2 (18:00)
[2017-09-30 18:12] LABS: Amphetamine,Urine NEGATIVE (NEGATIVE); Barbiturate,Urine NEGATIVE (NEGATIVE); Benzodiazepine,Urine NEGATIVE (NEGATIVE); Cocaine,Urine NEGATIVE (NEGATIVE); Methadone,Urine NEGATIVE (NEGATIVE); Opiate,Urine NEGATIVE (NEGATIVE); PCP,Urine NEGATIVE (NEGATIVE); THC,Urine NEGATIVE (NEGATIVE)
[2017-09-30] MEDS: ZOLOFT 50 MG TABLET PO SCH (21:37)
[2017-09-30 23:23] VITALS: O2SAT 97
[2017-10-01] MEDS ORDERED: Lactated Ringers 1,000 ML IV ONE ×2 (06:01→08:16)
[2017-10-01] MEDS ORDERED: PITOCIN 30 UNITS/ LR 500 ML 500 ML IV ONE (06:02)
[2017-10-01] MEDS: Lactated Ringers 1,000 ML IV SCH ×2 (06:05→15:49)
[2017-10-01] MEDS ORDERED: Ephedrine Sulfate 50 MG/ML IV PRN (08:16)
[2017-10-01] MEDS ORDERED: OB EPIDURAL NAROPIN/SUFENTANIL IN NACL EPIDURAL PRN (08:16)
[2017-10-01] MEDS ORDERED: Anucort-HC SUPPOSITORY PR PRN (12:32)
[2017-10-01] MEDS ORDERED: NORCO 5/325 MG PO PRN (12:32)
[2017-10-01] MEDS ORDERED: Mylicon 80MG PO PRN (12:32)
[2017-10-01] MEDS ORDERED: CORTISONE 1% CREAM TP PRN (12:32)
[2017-10-01] MEDS ORDERED: TUCKS TP PRN (12:32)
[2017-10-01] MEDS ORDERED: Dulcolax 10 MG SUPP PR PRN (12:32)
[2017-10-01] MEDS ORDERED: LANSINOH 40 GM TOP PRN (12:32)
[2017-10-01] MEDS ORDERED: Dermoplast Spray TP PRN (12:32)
[2017-10-01] MEDS ORDERED: Ambien 10 MG PO PRN (12:32)
[2017-10-01] MEDS: Colace 100 MG PO SCH (21:07)
[2017-10-01] MEDS: MOTRIN 400 MG PO PRN (21:07)
[2017-10-01] MEDS: ZOLOFT 50 MG TABLET PO SCH (21:08)
[2017-10-02] MEDS: MOTRIN 400 MG PO PRN ×3 (03:05→17:50)
[2017-10-02 05:39] LABS: BASOPHIL % 0.2 % (0.0-0.4); Basophil (Absolute #) 0.02 (0-0.4); Granulocyte Absolute (ANC) 7.36 (1.4-6.9); Granulocytes % 69.9 % (36.0-66.0); Hematocrit 35.1 % (35-47); Hemoglobin 11.7 gm/dl (12.0-16.0); Mean Corpuscular Hgb Concent. 33.3 g/dl (32-36); Monocyte (Absolute #) 1.04 (0.0-1.3); Monocytes % 9.9 % (0.0-12.0); Platelet Count 196 K/mm3 (150-450); Red Blood Count 4.18 M/mm3 (4.1-5.4); White Blood Count 10.5 K/mm3 (4.0-10.5)
[2017-10-02 05:41] LABS: Mean Corpuscular Hemoglobin 27.9 pg (26-32)
[2017-10-02] MEDS: TYLENOL EXTRA STRENGTH 500 MG PO PRN ×3 (06:50→21:54)
[2017-10-02] MEDS: FERREX 150 PO SCH (09:41)
[2017-10-02] MEDS: Colace 100 MG PO SCH ×2 (09:41→21:54)
[2017-10-02] MEDS: ZOLOFT 50 MG TABLET PO SCH (21:54)
[2017-10-03] MEDS: MOTRIN 400 MG PO PRN ×2 (07:03→11:00)
--- NOTE | 2017-10-03 07:15 | PCM.DS ---
Discharge Summary Date of Admission: 10/01/17 08:00 Admitting Physician: KAMALA HOOD Primary Care Provider: KAMALA HOOD Allergies Allergies No Known Drug Allergies Allergy (Verified 06/30/17 16:38) Hospital Summary - Hospital Course Hospital Course: patient was electively induced at 39 wks, at 39 weeks with no complications. no problems or concerns. - Vitals & Intake/Output Vital Signs: Vital Signs Temperature 98.3 F 10/03/17 02:00 Pulse Rate 89 10/03/17 02:00 Respiratory Rate 20 10/02/17 16:00 Blood Pressure 137/73 10/03/17 02:00 O2 Sat by Pulse Oximetry 97 09/30/17 23:23 Intake & Output: Intake & Output 09/30/17 10/01/17 10/02/17 10/03/17 11:59 11:59 11:59 11:59 Intake Total 1300 Balance 1300 Weight 139.706 kg - Lab Result Diagrams: 10/02/17 05:10 Discharge Exam General Appearance: no apparent distress, alert Respiratory Exam: normal breath sounds, lungs clear, No respiratory distress Cardiovascular Exam: regular rate/rhythm, normal heart sounds Gastrointestinal/Abdomen Exam: soft, No tenderness, No mass Extremity Exam: normal inspection, normal range of motion Final Diagnosis/Problem List - Final Discharge Diagnosis/Problem (1) Vaginal delivery Current Visit: Yes Status: Acute Assessment & Plan: doing well - Discharge Disposition: Home, Self-Care Condition: Stable Prescriptions: No Action Sertraline HCl [Zoloft] 100 mg PO HS Vits W-Ca,Fe,FA(<1Mg) [] 1 each PO DAILY Follow up with: KAMALA HOOD MD [Primary Care Provider] - 1 Week
[2017-10-03] MEDS: Colace 100 MG PO SCH (11:00)
[2017-10-03] MEDS: FERREX 150 PO SCH (11:00)
[2017-10-03 16:07] VITALS: BP 139/75; PULSE 80
== END 2017-10-03 15:05 | disposition home or self-care (01) | DRG 775 ==
LOC: OB 08:00 → OBSVTOIN 10-01 08:00
PROVIDERS: ADMIT Family Medicine; ATTEND Family Medicine
PROC: 10E0XZZ Delivery of Products of Conception, External Approach (ICD-10-PCS; principal; 2017-10-03)
DX: O80 Encounter for full-term uncomplicated delivery (principal); Z3A.39 39 weeks gestation of pregnancy; Z37.0 Single live birth
CPT/HCPCS: 36415; 80307; 85025; G0378; J2590; J2795; A9270-GY

== ENCOUNTER 2017-11-15 19:03 | Emergency (ER) | payer OTHER ==
[2017-11-15] MEDS ORDERED: TORAdol 30 mg Injection IM ONE (19:34)
[2017-11-15] MEDS ORDERED: TORAdol 30 mg Injection ONE (19:38)
--- NOTE | 2017-11-15 19:41 | ERPHSYRPT ---
- History of Present Illness Time Seen by Provider: 11/15/17 19:37 Source: patient, family Exam Limitations: no limitations Patient Subjective Stated Complaint: pt is alert and oriented x3. pt is ambulatory with a a slight limp on the right side. pt states that she fell down 5-6 concrete steps landing on her right side. pt states that she did hit her head. pt is unsure if she lost consciousness. pt denies being lightheaded or dizzy at this time, says that she has nucal ridigity and a headache. PERRLA. hand core cutter strong and equal, foot pushes strong and equal. no deformaties, brusing, or swelling on her right side or head. some slight redness noted behind right knee and on right elbow. no loss of sensation, pedal and radial pulses are equal and strong. Triage Nursing Assessment: see above Physician History: The patient is a 22-year-old right-handed female with her mother complaining that she fell down 5 or 6 stairs prior to arrival. She missed a step and fell on her right side. She has pain in her right elbow and right shoulder. She also has a headache from where she hit her head but she complains primarily of her pain in her right shoulder and right elbow. She did not apply ice to the areas. She did not take any pain medicines. She did not lose consciousness. She has some pain in her right leg but she is not worried about it. Her past medical history significant for depression. Occurred: just prior to arrival Reason for Fall: slipped, fell from height (stairs) Injuries/Pain Location: upper extremity (right shoulder and elbow) Loss of Consciousness: no loss of consciousness Quality: sharpness Severity of Pain-Max: moderate Severity of Pain-Current: moderate Modifying Factors: Improves With: nothing Associated Symptoms (Fall): extremity injury, headache Allergies/Adverse Reactions: No Known Drug Allergies Allergy (Verified 06/30/17 16:38) Home Medications: Sertraline HCl [Zoloft] 100 mg PO HS 07/01/16 [History] Hx Tetanus, Diphtheria Vaccination/Date Given: Yes Hx Influenza Vaccination/Date Given: Yes (2015) Hx Pneumococcal Vaccination/Date Given: No Immunizations Up to Date: Yes - Review of Systems Constitutional: No Fever, No Chills Eyes: No Symptoms Ears, Nose, & Throat: No Symptoms Respiratory: No Cough, No Dyspnea Cardiac: No Chest Pain, No Edema, No Syncope Abdominal/Gastrointestinal: No Abdominal Pain, No Nausea, No Vomiting, No Diarrhea Genitourinary Symptoms: No Dysuria Musculoskeletal: Fall, Injury Skin: No Rash Neurological: No Dizziness, No Focal Weakness, No Sensory Changes Psychological: No Symptoms Endocrine: No Symptoms Hematologic/Lymphatic: No Symptoms Immunological/Allergic: No Symptoms All Other Systems: Reviewed and Negative - Past Medical History Pertinent Past Medical History: Yes Neurological History: No Pertinent History ENT History: No Pertinent History Cardiac History: No Pertinent History Respiratory History: No Pertinent History Endocrine Medical History: No Pertinent History Musculoskeletal History: No Pertinent History GI Medical History: No Pertinent History History: Other Psycho-Social History: Anxiety Female Reproductive Disorders: No Pertinent History Other Medical History: KIDNEY STONES, preeclampsia - Past Surgical History Past Surgical History: No Neuro Surgical History: No Pertinent History Cardiac: No Pertinent History Respiratory: No Pertinent History Gastrointestinal: No Pertinent History Genitourinary: Kidney Surgery Musculoskeletal: No Pertinent History Female Surgical History: No Pertinent History Other Surgical History: WISDOM TEETH. KIDNEY STONE SURGICALLY REMOVED - Social History Smoking Status: Current every day smoker How long have you smoked: 2 weeks Exposure to second hand smoke: No Drug Use: none Patient Lives Alone: No Significant Family History: no pertinent family hx - Female History Hx Now: No - Nursing Vital Signs Nursing Vital Signs: Initial Vital Signs Temperature 99.5 F 11/15/17 19:04 Pulse Rate 104 H 11/15/17 19:04 Respiratory Rate 18 11/15/17 19:04 Blood Pressure 141/92 11/15/17 19:04 O2 Sat by Pulse Oximetry 99 11/15/17 19:04 Pain Scale Pain Intensity 6 - Elle Coma Score Best Eye Response ([place]): (4) open spontaneously Best Verbal Response ([place]): (5) oriented Best Motor Response ([place]): (6) obeys commands [place] Total: 15 - Physical Exam General Appearance: no apparent distress, alert Head Injury: no evidence of injury Eye Exam: PERRL/EOMI ENT Exam: airway nml Neck Exam: normal inspection, No tenderness Respiratory/Chest Exam: normal breath sounds, No chest tenderness, No respiratory distress Cardiovascular Exam: normal heart sounds, regular rate/rhythm Gastrointestinal Exam: soft, No tenderness, No distention, No guarding, No ecchymosis Rectal Exam: not done Back Exam: normal inspection, No vertebral tenderness Extremity Exam: limited range of motion (right shoulder and elbow), pain with movement (right shoulder and elbow), tenderness (right shoulder and elbow) Neurologic Exam: alert, oriented x 3, cooperative, sensation nml, No motor deficits Skin Exam: abrasion (right elbow) SpO2 Interpretation: normal SpO2: 99 Oxygen Delivery: Room Air - Radiology Exams Right Shoulder X-ray Interpretation: Interpreted by me, Negative, No Fracture, No Subluxation Right Elbow X-ray Interpretation: Interpreted by me, Negative, No Fracture, No Subluxation Ordered Tests: Active Orders 24 hr Category Date Time Status Cold Application STAT Care 11/15/17 19:34 Active ELBOW (MINIMUM 3 VIEWS) Stat Exams 11/15/17 19:35 Ordered SHOULDER Stat Exams 11/15/17 19:36 Ordered Medication Summary Discontinued Medications Generic Name Dose Route Start Last Admin Trade Name Freq PRN Reason Stop Dose Admin Ketorolac Tromethamine 60 mg 11/15/17 19:34 11/15/17 19:39 Toradol 30 Mg Injection IM 11/15/17 19:35 60 mg STAT ONE Administration Ketorolac Tromethamine Confirm 11/15/17 19:38 Toradol 30 Mg Injection Administered 11/15/17 19:39 Dose 60 mg .ROUTE .STK-MED ONE - Progress Progress: improved Counseled pt/family regarding: diagnosis, rad results - Departure Time of Disposition: 20:00 Departure Disposition: Home Clinical Impression: Fall, Contusion of right shoulder, Contusion of right elbow Condition: Stable Critical Care Time: No Referrals: KAMALA HOOD MD [Primary Care Provider] - Additional Instructions: You fell down some stairs causing contusions to your right shoulder and right elbow. The x-rays did not show any broken bones. You were given Toradol 60 mg in the ER and placed in a splint to support your right arm. Wear the splint as needed for comfort. Take naproxen 500 mg 2 times a day as needed. Apply ice to the areas for 15 minutes 2-3 times a day as needed. Follow-up with your primary medical doctor as needed. Prescriptions: Naproxen 500 mg PO BID PRN #30 tablet.
[2017-11-15 20:31] VITALS: BP 123/74; PULSE 87; O2SAT 98
--- NOTE | 2017-11-16 09:00 | XRAY ---
Exam: 3 views of the right elbow from 11/15/2017. Comparison: None. Indication: 22-year-old female patient fell down stairs, complains of posterior right elbow pain. Findings: AP, oblique, and lateral radiographs were obtained. I see no acute fracture, dislocation, or joint effusion. I do not appreciate any significant focal soft tissue swelling or radiopaque soft tissue foreign body posterior to the right elbow on the lateral image. The right elbow joint space appears well-preserved and displays smooth articular margins. No abnormal periarticular soft tissue calcifications are seen. No other focal bone lesion is evident. Impression: 1. No acute fracture, dislocation, or joint effusion of the right elbow is seen.
--- NOTE | 2017-11-16 09:10 | XRAY ---
Exam: 3 view (4 images) right shoulder exam from 11/15/2017. Comparison: None. Indication: 22-year-old female patient fell down stairs, complains of right shoulder pain. Findings: AP internal rotation, AP external rotation, and 2 attempted Y views of the right shoulder were obtained. Despite 2 attempts, the Y views are not optimal, as they are a bit under rotated and centered low. However, I see no acute right shoulder fracture or dislocation. The distance between the inferior margin of the acromion and the superior aspect of the right humeral head is a bit prominent on both AP images, although this is not seen on the Y views. It is likely this represents some ligamentous laxity. Some right shoulder joint effusion is not completely excluded. Correlate clinically. The right acromioclavicular joint appears intact. The visualized right upper rib cage appears unremarkable. Impression: 1. The radiographic exam of the right shoulder is mildly limited. However, I see no acute right shoulder fracture or dislocation. See above.
== END 2017-11-15 20:31 | disposition home or self-care (01) ==
LOC: ED 19:03
DX: S50.01XA Contusion of right elbow, initial encounter (principal); M79.604 Pain in right leg; R51 Headache; W10.9XXA Fall (on) (from) unspecified stairs and steps, initial encounter; F41.9 Anxiety disorder, unspecified; Z72.0 Tobacco use
CPT/HCPCS: 73030; 73080; 96372; 99284; J1885

== ENCOUNTER 2018-11-03 22:41 | Emergency (ER) | payer OTHER ==
[2018-11-03] MEDS ORDERED: MOTRIN 400 MG PO ONE (23:17)
[2018-11-03] MEDS ORDERED: MOTRIN 400 MG ONE (23:19)
[2018-11-03] MEDS ORDERED: Sodium Chloride 0.9% 1000 ML 1,000 ML IV STA (23:19)
--- NOTE | 2018-11-03 23:24 | ERPHSYRPT ---
- History of Present Illness Time Seen by Provider: 11/03/18 22:58 Source: patient Exam Limitations: no limitations Patient Subjective Stated Complaint: Pt states she started with a headache about 2 days ago and yesterday began running a fever.Temp got as high 104 but not below 101 at home. Has tried taking Tylenol but doesn't seem to help. Has had pain and stiffness in her neck and pain in both of her ears. Also slight numbness around her mouth the higher the temperature Triage Nursing Assessment: Pt a&o. Ambualted back to unit. Respirations easy and non-labored. Patient's skin pwd. Cheeks flushed. Physician History: Pt started c/o frontal headaches, fever 2 days ago, denies cough, chest pain, SOB, abdominal pain, sore throat, nausea, vomiting, diarrhea or other complaints , except bilateral ear aches. She took Tylenol 3 hours ago. Timing/Duration: day(s) (2) Fever Severity: moderate Fever Therapy [facility]: Acetaminophen Associated Symptoms: headache, No confusion, No cough, No nausea/vomiting, No rash, No shortness of breath, No sore throat Allergies/Adverse Reactions: No Known Drug Allergies Allergy (Verified 06/30/17 16:38) Home Medications: Sertraline HCl [Zoloft] 100 mg PO DAILY 07/01/16 [History] Hx Tetanus, Diphtheria Vaccination/Date Given: Yes Hx Influenza Vaccination/Date Given: Yes (2017) Hx Pneumococcal Vaccination/Date Given: No - Review of Systems Constitutional: Fever, Chills Eyes: No Symptoms Ears, Nose, & Throat: Ear Pain Respiratory: No Symptoms Cardiac: No Symptoms Abdominal/Gastrointestinal: No Symptoms Genitourinary Symptoms: No Symptoms Musculoskeletal: No Symptoms Skin: No Symptoms Neurological: Headache All Other Systems: Reviewed and Negative - Past Medical History Pertinent Past Medical History: Yes Neurological History: No Pertinent History ENT History: No Pertinent History Cardiac History: No Pertinent History Respiratory History: No Pertinent History Endocrine Medical History: No Pertinent History Musculoskeletal History: No Pertinent History GI Medical History: No Pertinent History History: Other Psycho-Social History: Anxiety Female Reproductive Disorders: No Pertinent History Other Medical History: KIDNEY STONES, preeclampsia - Past Surgical History Past Surgical History: Yes Neuro Surgical History: No Pertinent History Cardiac: No Pertinent History Respiratory: No Pertinent History Gastrointestinal: No Pertinent History Genitourinary: Kidney Surgery Musculoskeletal: No Pertinent History Female Surgical History: No Pertinent History Other Surgical History: WISDOM TEETH. KIDNEY STONE SURGICALLY REMOVED - Social History Smoking Status: Current every day smoker How long have you smoked: few years Exposure to second hand smoke: No Drug Use: none Patient Lives Alone: No Significant Family History: no pertinent family hx - Female History Hx Last Menstrual Period: 10/15/18 Hx Now: (IUD) - Nursing Vital Signs Nursing Vital Signs: Initial Vital Signs Temperature 100.9 F 11/03/18 23:04 Pulse Rate 108 H 11/03/18 23:04 Respiratory Rate 18 11/03/18 23:04 Blood Pressure 134/75 11/03/18 23:04 O2 Sat by Pulse Oximetry 99 11/03/18 23:04 Pain Scale Pain Intensity 8 - Physical Exam General Appearance: no apparent distress Eye Exam: eyes nml inspection ENT Exam: normal ENT inspection, TMs normal, pharynx normal Neck Exam: normal inspection, non-tender, supple, trachea midline, No lymphadenopathy (R), No lymphadenopathy (L) Respiratory Exam: normal breath sounds, chest non-tender, lungs clear, no respiratory distress Cardiovascular/Chest Exam: normal heart sounds, murmur, normal peripheral pulses , tachycardia, No edema Gastrointestinal/Abdominal Exam: soft, non tender, no distention, no mass, no guarding, no ecchymosis, no organomegaly, normal bowel sounds Extremity Exam: non-tender, No no calf tenderness Neurologic Exam: alert, oriented x 3, cooperative, normal mood/affect Skin Exam: normal color, warm, dry, No rash, No petechiae, No cyanosis, No diaphoresis Lymphatic: No adenopathy SpO2 Interpretation: normal SpO2: 99 O2 Delivery: Room Air - Course Nursing assessment & vital signs reviewed: Yes Ordered Tests: Active Orders 24 hr Category Date Time Status IV Insertion STAT Care 11/03/18 23:19 Active CULTURE,URINE Stat Lab 11/03/18 23:18 Received HCG,QUALITATIVE URINE Stat Lab 11/03/18 23:18 Completed Lactic Acid Stat Lab 11/03/18 23:58 Completed UA W/RFX UR CULTURE Stat Lab 11/03/18 23:18 Completed Medication Summary Discontinued Medications Generic Name Dose Route Start Last Admin Trade Name Freq PRN Reason Stop Dose Admin Fentanyl Citrate 50 mcg 11/04/18 01:05 11/04/18 01:11 Sublimaze 100 Mcg/2 Ml IV 11/04/18 01:06 50 mcg STAT ONE Administration Fentanyl Citrate Confirm 11/04/18 01:07 Sublimaze 100 Mcg/2 Ml Administered 11/04/18 01:08 Dose 100 mcg .ROUTE .STK-MED ONE Sodium Chloride 1,000 mls @ 999 mls/hr 11/03/18 23:19 11/03/18 23:26 Sodium Chloride 0.9% 1000 Ml IV 11/04/18 00:19 999 mls/hr .Q1H1M STA Administration Sodium Chloride Confirm 11/03/18 23:25 Sodium Chloride 0.9% 1000 Ml Administered 11/03/18 23:26 Dose 1,000 mls @ ud .ROUTE .STK-MED ONE Ceftriaxone Sodium/Dextrose 1 g in 50 mls @ 100 mls/hr 11/04/18 01:07 01:19 Rocephin 1 Gm-D5w 50 Ml Bag IV 11/04/18 01:36 100 mls/hr STAT STA 100 mls/hr Administration Ceftriaxone Sodium/Dextrose Confirm 11/04/18 01:12 Rocephin 1 Gm-D5w 50 Ml Bag Administered 11/04/18 01:13 Dose 1 g in 50 mls @ ud IV .STK-MED ONE Ibuprofen 400 mg 11/03/18 23:17 11/03/18 23:20 Motrin 400 Mg PO 11/03/18 23:18 400 mg STAT ONE Administration Ibuprofen Confirm 11/03/18 23:19 Motrin 400 Mg Administered 11/03/18 23:20 Dose 400 mg .ROUTE .STK-MED ONE Ondansetron HCl 4 mg 11/04/18 01:06 11/04/18 01:18 Zofran 4 Mg/2 Ml Vial IV 11/04/18 01:07 4 mg STAT ONE Administration Ondansetron HCl Confirm 11/04/18 01:12 Zofran 4 Mg/2 Ml Vial Administered 11/04/18 01:13 Dose 4 mg .ROUTE .STK-MED ONE Lab/Rad Data: Laboratory Result Diagrams 11/03/18 00:02 11/03/18 00:02 Laboratory Results 11/03/18 11/03/18 11/03/18 Range/Units 23:58 23:18 23:18 WBC (4.0-10.5) K/mm3 RBC (4.1-5.4) M/mm3 Hgb (12.0-16.0) gm/dl Hct (35-47) % MCV (78-100) fl MCH (26-32) pg MCHC (32-36) g/dl RDW (11.5-14.0) % Plt Count (150-450) K/mm3 MPV (6-9.5) fl Gran % (36.0-66.0) % Eos # (Auto) (0-0.5) Absolute Lymphs (auto) (1.0-4.6) Absolute Monos (auto) (0.0-1.3) Lymphocytes % (24.0-44.0) % Monocytes % (0.0-12.0) % Eosinophils % (0.00-5.0) % Basophils % (0.0-0.4) % Absolute Granulocytes (1.4-6.9) Basophils # (0-0.4) Sodium (137-145) mmol/L Potassium (3.5-5.1) mmol/L Chloride (98-107) mmol/L Carbon Dioxide (22-30) mmol/L Anion Gap (5-15) MEQ/L BUN (7-17) mg/dL Creatinine (0.52-1.04) mg/dL Estimated GFR ML/MIN Glucose (74-106) mg/dL Lactic Acid 0.8 (0.4-2.0) Calcium (8.4-10.2) mg/dL Total Bilirubin (0.2-1.3) mg/dL AST (14-36) U/L ALT (0-35) U/L Alkaline Phosphatase (38-126) U/L Serum Total Protein (6.3-8.2) g/dL Albumin (3.5-5.0) g/dL Urine Color YELLOW (YELLOW) Urine Appearance CLOUDY (CLEAR) Urine pH 7.0 (5-6) Ur Specific [place] 1.019 (1.005-1.025) Urine Protein NEGATIVE (Negative) Urine Ketones NEGATIVE (NEGATIVE) Urine Blood SMALL (0-5) Obed/ul Urine Nitrite POSITIVE (NEGATIVE) Urine Bilirubin NEGATIVE (NEGATIVE) Urine Urobilinogen 4 (0-1) mg/dL Ur Leukocyte Esterase MODERATE (NEGATIVE) Urine WBC (Auto) 26-50 (0-5) /HPF Urine RBC (Auto) 6-10 (0-2) /HPF U Epithel Cells (Auto) RARE (FEW) /HPF Urine Bacteria (Auto) MANY (NEGATIVE) /HPF Urine Mucus (Auto) SLIGHT (NEGATIVE) /HPF Urine Culture Reflexed YES (NO) Urine Glucose NEGATIVE (NEGATIVE) mg/dL Urine HCG, Qual NEGATIVE (Negative) Monoscreen (Negative) Group A Strep Antibody (NEGATIVE) 11/03/18 11/03/18 11/03/18 Range/Units 00:02 00:02 00:02 WBC 11.4 H (4.0-10.5) K/mm3 RBC 4.59 (4.1-5.4) M/mm3 Hgb 13.2 (12.0-16.0) gm/dl Hct 39.9 (35-47) % MCV 86.9 (78-100) fl MCH 28.8 (26-32) pg MCHC 33.1 (32-36) g/dl RDW 13.1 (11.5-14.0) % Plt Count 226 (150-450) K/mm3 MPV 10.7 H (6-9.5) fl Gran % 69.0 H (36.0-66.0) % Eos # (Auto) 0.15 (0-0.5) Absolute Lymphs (auto) 2.04 (1.0-4.6) Absolute Monos (auto) 1.30 (0.0-1.3) Lymphocytes % 18.0 L (24.0-44.0) % Monocytes % 11.5 (0.0-12.0) % Eosinophils % 1.3 (0.00-5.0) % Basophils % 0.2 (0.0-0.4) % Absolute Granulocytes 7.84 H (1.4-6.9) Basophils # 0.02 (0-0.4) Sodium 138 (137-145) mmol/L Potassium 3.8 (3.5-5.1) mmol/L Chloride 108 H (98-107) mmol/L Carbon Dioxide 24 (22-30) mmol/L Anion Gap 10.5 (5-15) MEQ/L BUN 14 (7-17) mg/dL Creatinine 0.72 (0.52-1.04) mg/dL Estimated GFR > 60.0 ML/MIN Glucose 105 (74-106) mg/dL Lactic Acid (0.4-2.0) Calcium 9.2 (8.4-10.2) mg/dL Total Bilirubin 0.40 (0.2-1.3) mg/dL AST 21 (14-36) U/L ALT 25 (0-35) U/L Alkaline Phosphatase 96 (38-126) U/L Serum Total Protein 7.1 (6.3-8.2) g/dL Albumin 3.9 (3.5-5.0) g/dL Urine Color (YELLOW) Urine Appearance (CLEAR) Urine pH (5-6) Ur Specific [place] (1.005-1.025) Urine Protein (Negative) Urine Ketones (NEGATIVE) Urine Blood (0-5) Obed/ul Urine Nitrite (NEGATIVE) Urine Bilirubin (NEGATIVE) Urine Urobilinogen (0-1) mg/dL Ur Leukocyte Esterase (NEGATIVE) Urine WBC (Auto) (0-5) /HPF Urine RBC (Auto) (0-2) /HPF U Epithel Cells (Auto) (FEW) /HPF Urine Bacteria (Auto) (NEGATIVE) /HPF Urine Mucus (Auto) (NEGATIVE) /HPF Urine Culture Reflexed (NO) Urine Glucose (NEGATIVE) mg/dL Urine HCG, Qual (Negative) Monoscreen NEGATIVE (Negative) Group A Strep Antibody (NEGATIVE) 11/03/18 Range/Units 00:02 WBC (4.0-10.5) K/mm3 RBC (4.1-5.4) M/mm3 Hgb (12.0-16.0) gm/dl Hct (35-47) % MCV (78-100) fl MCH (26-32) pg MCHC (32-36) g/dl RDW (11.5-14.0) % Plt Count (150-450) K/mm3 MPV (6-9.5) fl Gran % (36.0-66.0) % Eos # (Auto) (0-0.5) Absolute Lymphs (auto) (1.0-4.6) Absolute Monos (auto) (0.0-1.3) Lymphocytes % (24.0-44.0) % Monocytes % (0.0-12.0) % Eosinophils % (0.00-5.0) % Basophils % (0.0-0.4) % Absolute Granulocytes (1.4-6.9) Basophils # (0-0.4) Sodium (137-145) mmol/L Potassium (3.5-5.1) mmol/L Chloride (98-107) mmol/L Carbon Dioxide (22-30) mmol/L Anion Gap (5-15) MEQ/L BUN (7-17) mg/dL Creatinine (0.52-1.04) mg/dL Estimated GFR ML/MIN Glucose (74-106) mg/dL Lactic Acid (0.4-2.0) Calcium (8.4-10.2) mg/dL Total Bilirubin (0.2-1.3) mg/dL AST (14-36) U/L ALT (0-35) U/L Alkaline Phosphatase (38-126) U/L Serum Total Protein (6.3-8.2) g/dL Albumin (3.5-5.0) g/dL Urine Color (YELLOW) Urine Appearance (CLEAR) Urine pH (5-6) Ur Specific [place] (1.005-1.025) Urine Protein (Negative) Urine Ketones (NEGATIVE) Urine Blood (0-5) Obed/ul Urine Nitrite (NEGATIVE) Urine Bilirubin (NEGATIVE) Urine Urobilinogen (0-1) mg/dL Ur Leukocyte Esterase (NEGATIVE) Urine WBC (Auto) (0-5) /HPF Urine RBC (Auto) (0-2) /HPF U Epithel Cells (Auto) (FEW) /HPF Urine Bacteria (Auto) (NEGATIVE) /HPF Urine Mucus (Auto) (NEGATIVE) /HPF Urine Culture Reflexed (NO) Urine Glucose (NEGATIVE) mg/dL Urine HCG, Qual (Negative) Monoscreen (Negative) Group A Strep Antibody NEGATIVE (NEGATIVE) - Progress Progress: improved Progress Note: 11/04/18 02:07 Pt was started on IV saline bolus, Rocephin IV, fever resolved, feels better,m stable, discussed her results, she is being discharged home on PO Keflex to rest x 2-3 days,. drink plenty of fluids, and follow up with her physician in 2- 3 days. Counseled pt/family regarding: lab results, diagnosis, need for follow-up - Departure Departure Disposition: Home Clinical Impression: Pyelonephritis Condition: Stable Critical Care Time: No Referrals: KAMALA HOOD MD [Primary Care Provider] - Instructions: Fever, Adult (DC), Urinary Tract Infection, Adult (DC), Kidney Infection (DC) Additional Instructions: Rest x 23 days, drink plenty of fluids, and follow up with your physician in 2- 3 days, return if severe pain, headaches, lethargy, vomiting, high, uncontrollable fever> 103 F! Prescriptions: Cephalexin Mh 500 mg [Keflex 500 mg] 500 mg PO Q6H #28 capsule
[2018-11-03] MEDS ORDERED: Sodium Chloride 0.9% 1000 ML 1,000 ML ONE (23:25)
[2018-11-04 00:04] LABS: BASOPHIL % 0.2 % (0.0-0.4); Basophil (Absolute #) 0.02 (0-0.4); Eosinophil % 1.3 % (0.00-5.0); Eosinophil (Absolute #) 0.15 (0-0.5); Granulocyte Absolute (ANC) 7.84 (1.4-6.9); Hematocrit 39.9 % (35-47); Hemoglobin 13.2 gm/dl (12.0-16.0); Lymphocyte (Absolute #) 2.04 (1.0-4.6); Mean Cell Volume 86.9 fl (78-100); Mean Corpuscular Hemoglobin 28.8 pg (26-32); Mean Corpuscular Hgb Concent. 33.1 g/dl (32-36); Mean Platelet Volume 10.7 fl (6-9.5); Monocytes % 11.5 % (0.0-12.0); Platelet Count 226 K/mm3 (150-450); Red Blood Count 4.59 M/mm3 (4.1-5.4); Red Cell Distribution Width 13.1 % (11.5-14.0); White Blood Count 11.4 K/mm3 (4.0-10.5)
[2018-11-04 00:18] LABS: ALBUMIN 3.9 g/dL (3.5-5.0); ALKALINE PHOSPHATASE 96 U/L (38-126); ANION GAP 10.5 MEQ/L (5-15); BLOOD UREA NITROGEN 14 mg/dL (7-17); CHLORIDE 108 mmol/L (98-107); Calcium 9.2 mg/dL (8.4-10.2); Carbon Dioxide 24 mmol/L (22-30); Creatinine 1 0.72 mg/dL (0.52-1.04); Glucose 105 mg/dL (74-106); Potassium 3.8 mmol/L (3.5-5.1); SGOT/AST 21 U/L (14-36); SGPT/ALT 25 U/L (0-35); SODIUM 138 mmol/L (137-145); Total Protein 7.1 g/dL (6.3-8.2)
[2018-11-04 00:35] LABS: Appearance CLOUDY (CLEAR); Bacteria MANY /HPF (NEGATIVE); Bilirubin NEGATIVE (NEGATIVE); Blood SMALL Ery/ul (0-5); Epithelial Cells RARE /HPF (FEW); Glucose NEGATIVE (NEGATIVE); Ketones NEGATIVE (NEGATIVE); Leukocyte Esterase MODERATE (NEGATIVE); Mucus SLIGHT /HPF (NEGATIVE); Nitrite POSITIVE (NEGATIVE); Protein,Urine Dip NEGATIVE (Negative); Specific Gravity 1.019 (1.005-1.025); Urobilinogen 4 mg/dL (0-1); WBC 26-50 /HPF (0-5)
[2018-11-04] MEDS ORDERED: SUBLIMAZE 100 MCG/2 ML IV ONE (01:05)
[2018-11-04] MEDS ORDERED: Zofran 4 MG/2 ML VIAL IV ONE (01:06)
[2018-11-04] MEDS ORDERED: ROCEPHIN 1 Gm-D5w 50 ml Bag** 1 G/50 ML IVPB IV STA (01:07)
[2018-11-04] MEDS ORDERED: SUBLIMAZE 100 MCG/2 ML ONE (01:07)
[2018-11-04] MEDS ORDERED: Zofran 4 MG/2 ML VIAL ONE (01:12)
[2018-11-04] MEDS ORDERED: ROCEPHIN 1 Gm-D5w 50 ml Bag** 1 G/50 ML IVPB IV ONE (01:12)
[2018-11-04 02:11] VITALS: O2SAT 99
[2018-11-04 02:36] VITALS: BP 111/63; PULSE 76
== END 2018-11-04 02:34 | disposition home or self-care (01) ==
LOC: ED 22:41
DX: N12 Tubulo-interstitial nephritis, not specified as acute or chronic (principal); R42 Dizziness and giddiness; R50.9 Fever, unspecified; Z79.899 Other long term (current) drug therapy
CPT/HCPCS: 36000; 36415; 80053; 81001; 83605; 84703; 85025; 86308; 87077; 87086; 87186; 87651; 96360; 96365; 96374; 96375; 99284; J0696; J2405; J3010; A9270-GY

== ENCOUNTER 2019-04-10 09:41 | Emergency (ER) | payer OTHER ==
--- NOTE | 2019-04-10 11:10 | ERPHSYRPT ---
- History of Present Illness Time Seen by Provider: 04/10/19 10:09 Source: patient Exam Limitations: no limitations Patient Subjective Stated Complaint: PATIENT ARRIVED TO ER. PATIENT AMBULATED TO ROOM WITH STEADY GAIT. PATIENT ALERT AND ORIENTATED TIMES 3. PATIENT ABLE TO ANSWER QUESTIONS APPROPRIATLEY. PATIENT STATES " I HAVE BEEN RUNNING A HIGH FEVER SINCE YESTURDAY." PATIENT STATES " I HAVE BEEN LIGHTHEADED, BOTH EARS ARE SORE, HAVING NAUSEA, SORE THROAT, AND MY NECK IS REALLY STIFF" Triage Nursing Assessment: PATIENT ALERT AND COOPERATIVE. CENTRAL COLOR FLUSHED. SKIN WARM TO TOUCH. LUNGS CLEAR A/P THROUGHOUT ALL BASES. PATIENT DENIES SOB. RESPIRATORY STATUS EASY AND NON-LABORED. PATIENT'S THROAT ASSESSED, NO LESIONS OR BLISTERS NOTED. Physician History: flu like s/s for 1 day Timing/Duration: yesterday Severity: mild Associated Symptoms: cough (arranged were as date), fever, headaches, loss of appetite, malaise Allergies/Adverse Reactions: No Known Drug Allergies Allergy (Verified 04/10/19 09:50) Hx Tetanus, Diphtheria Vaccination/Date Given: No Hx Influenza Vaccination/Date Given: No Hx Pneumococcal Vaccination/Date Given: No - Review of Systems Constitutional: Fever, Chills, Fatigue, Malaise Eyes: No Symptoms Ears, Nose, & Throat: Nose Congestion, Throat Pain Respiratory: Cough Cardiac: No Symptoms Abdominal/Gastrointestinal: Nausea Genitourinary Symptoms: No Symptoms Musculoskeletal: Arthralgias, Myalgias Skin: No Symptoms Neurological: No Symptoms Psychological: No Symptoms Endocrine: No Symptoms Hematologic/Lymphatic: No Symptoms Immunological/Allergic: No Symptoms All Other Systems: Reviewed and Negative - Past Medical History Pertinent Past Medical History: Yes Neurological History: No Pertinent History ENT History: No Pertinent History Cardiac History: No Pertinent History Respiratory History: No Pertinent History Endocrine Medical History: No Pertinent History Musculoskeletal History: No Pertinent History GI Medical History: No Pertinent History History: Other Psycho-Social History: Anxiety Female Reproductive Disorders: No Pertinent History Other Medical History: KIDNEY STONES, preeclampsia - Past Surgical History Past Surgical History: Yes Neuro Surgical History: No Pertinent History Cardiac: No Pertinent History Respiratory: No Pertinent History Gastrointestinal: No Pertinent History Genitourinary: Kidney Surgery Musculoskeletal: No Pertinent History Female Surgical History: No Pertinent History Other Surgical History: WISDOM TEETH. KIDNEY STONE SURGICALLY REMOVED - Social History Smoking Status: Current every day smoker How long have you smoked: 4 YEARS Exposure to second hand smoke: Yes Drug Use: none Patient Lives Alone: No Significant Family History: no pertinent family hx - Female History Hx Now: No - Nursing Vital Signs Nursing Vital Signs: Initial Vital Signs Temperature 101.5 F 04/10/19 09:51 Pulse Rate 108 H 04/10/19 09:51 Respiratory Rate 20 04/10/19 09:51 Blood Pressure 142/81 04/10/19 09:51 O2 Sat by Pulse Oximetry 96 04/10/19 09:51 Pain Scale Pain Intensity 0 - Physical Exam General Appearance: mild distress Eye Exam: PERRL/EOMI, eyes nml inspection (adjacent to where he has) Ears, Nose, Throat Exam: normal ENT inspection, moist mucous membranes Neck Exam: normal inspection, non-tender, supple, full range of motion, midline tenderness, No lymphadenopathy Respiratory Exam: normal breath sounds, lungs clear, other (tachyu re w/ o M,S3,S4), No chest tenderness Gastrointestinal/Abdomen Exam: soft, normal bowel sounds, No tenderness, No distention, No mass, No guarding, No rebound Back Exam: normal inspection, normal range of motion, No CVA tenderness, No vertebral tenderness Neurologic Exam: oriented x 3, cooperative, 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, normal mood/affect, nml cerebellar function, sensation nml Skin Exam: normal color Lymphatic Exam: No adenopathy SpO2 Interpretation: normal SpO2: 96 O2 Delivery: Room Air Ordered Tests: Active Orders 24 hr Category Date Time Status CHEST 1 VIEW (PORTABLE) Stat Exams 04/10/19 12:36 Ordered CBC W DIFF Stat Lab 04/10/19 11:00 Completed CMP Stat Lab 04/10/19 11:00 Completed HCG,QUALITATIVE URINE Stat Lab 04/10/19 11:14 Completed UA W/RFX UR CULTURE Stat Lab 04/10/19 11:14 Completed Medication Summary Discontinued Medications Generic Name Dose Route Start Last Admin Trade Name Freq PRN Reason Stop Dose Admin Acetaminophen 1,000 mg 04/10/19 11:54 04/10/19 11:57 Tylenol Extra Strength 500 Mg PO 04/10/19 11:55 1,000 mg STAT STA Administration Acetaminophen Confirm 04/10/19 11:56 Tylenol Extra Strength 500 Mg Administered 04/10/19 11:57 Dose 1,000 mg .ROUTE .STK-MED ONE Lab/Rad Data: Laboratory Result Diagrams 04/10/19 11:00 04/10/19 11:00 Laboratory Results 04/10/19 04/10/19 04/10/19 Range/Units 11:14 11:14 11:00 WBC 9.2 (4.0-10.5) K/mm3 RBC 4.93 (4.1-5.4) M/mm3 Hgb 13.9 (12.0-16.0) gm/dl Hct 42.8 (35-47) % MCV 86.8 (78-100) fl MCH 28.2 (26-32) pg MCHC 32.5 (32-36) g/dl RDW 13.1 (11.5-14.0) % Plt Count 225 (150-450) K/mm3 MPV 10.8 H (6-9.5) fl Gran % 76.9 H (36.0-66.0) % Eos # (Auto) 0.07 (0-0.5) Absolute Lymphs (auto) 1.19 (1.0-4.6) Absolute Monos (auto) 0.84 (0.0-1.3) Lymphocytes % 12.9 L (24.0-44.0) % Monocytes % 9.1 (0.0-12.0) % Eosinophils % 0.8 (0.00-5.0) % Basophils % 0.3 (0.0-0.4) % Absolute Granulocytes 7.07 H (1.4-6.9) Basophils # 0.03 (0-0.4) Sodium (137-145) mmol/L Potassium (3.5-5.1) mmol/L Chloride (98-107) mmol/L Carbon Dioxide (22-30) mmol/L Anion Gap (5-15) MEQ/L BUN (7-17) mg/dL Creatinine (0.52-1.04) mg/dL Estimated GFR ML/MIN Glucose (74-106) mg/dL Calcium (8.4-10.2) mg/dL Total Bilirubin (0.2-1.3) mg/dL AST (14-36) U/L ALT (0-35) U/L Alkaline Phosphatase (38-126) U/L Serum Total Protein (6.3-8.2) g/dL Albumin (3.5-5.0) g/dL Urine Color YELLOW (YELLOW) Urine Appearance SLIGHTLY CLOUDY (CLEAR) Urine pH 7.0 (5-6) Ur Specific [place] 1.019 (1.005-1.025) Urine Protein NEGATIVE (Negative) Urine Ketones NEGATIVE (NEGATIVE) Urine Blood NEGATIVE (0-5) Obed/ul Urine Nitrite NEGATIVE (NEGATIVE) Urine Bilirubin NEGATIVE (NEGATIVE) Urine Urobilinogen NEGATIVE (0-1) mg/dL Ur Leukocyte Esterase TRACE (NEGATIVE) Urine WBC (Auto) 0-2 (0-5) /HPF Urine RBC (Auto) 11-15 (0-2) /HPF U Epithel Cells (Auto) RARE (FEW) /HPF Urine Bacteria (Auto) RARE (NEGATIVE) /HPF Urine Mucus (Auto) SLIGHT (NEGATIVE) /HPF Urine Culture Reflexed NO (NO) Urine Glucose NEGATIVE (NEGATIVE) mg/dL Urine HCG, Qual NEGATIVE (Negative) Influenza Type A Ag (NEGATIVE) Influenza Type B Ag (NEGATIVE) RSV (PCR) (Negative) Group A Strep Antibody (NEGATIVE) 04/10/19 04/10/19 Range/Units 11:00 11:00 WBC (4.0-10.5) K/mm3 RBC (4.1-5.4) M/mm3 Hgb (12.0-16.0) gm/dl Hct (35-47) % MCV (78-100) fl MCH (26-32) pg MCHC (32-36) g/dl RDW (11.5-14.0) % Plt Count (150-450) K/mm3 MPV (6-9.5) fl Gran % (36.0-66.0) % Eos # (Auto) (0-0.5) Absolute Lymphs (auto) (1.0-4.6) Absolute Monos (auto) (0.0-1.3) Lymphocytes % (24.0-44.0) % Monocytes % (0.0-12.0) % Eosinophils % (0.00-5.0) % Basophils % (0.0-0.4) % Absolute Granulocytes (1.4-6.9) Basophils # (0-0.4) Sodium 139 (137-145) mmol/L Potassium 4.5 (3.5-5.1) mmol/L Chloride 103 (98-107) mmol/L Carbon Dioxide 28 (22-30) mmol/L Anion Gap 12.2 (5-15) MEQ/L BUN 10 (7-17) mg/dL Creatinine 0.84 (0.52-1.04) mg/dL Estimated GFR > 60.0 ML/MIN Glucose 99 (74-106) mg/dL Calcium 9.3 (8.4-10.2) mg/dL Total Bilirubin 0.30 (0.2-1.3) mg/dL AST 21 (14-36) U/L ALT 22 (0-35) U/L Alkaline Phosphatase 97 (38-126) U/L Serum Total Protein 7.7 (6.3-8.2) g/dL Albumin 4.2 (3.5-5.0) g/dL Urine Color (YELLOW) Urine Appearance (CLEAR) Urine pH (5-6) Ur Specific [place] (1.005-1.025) Urine Protein (Negative) Urine Ketones (NEGATIVE) Urine Blood (0-5) Obed/ul Urine Nitrite (NEGATIVE) Urine Bilirubin (NEGATIVE) Urine Urobilinogen (0-1) mg/dL Ur Leukocyte Esterase (NEGATIVE) Urine WBC (Auto) (0-5) /HPF Urine RBC (Auto) (0-2) /HPF U Epithel Cells (Auto) (FEW) /HPF Urine Bacteria (Auto) (NEGATIVE) /HPF Urine Mucus (Auto) (NEGATIVE) /HPF Urine Culture Reflexed (NO) Urine Glucose (NEGATIVE) mg/dL Urine HCG, Qual (Negative) Influenza Type A Ag NEGATIVE (NEGATIVE) Influenza Type B Ag NEGATIVE (NEGATIVE) RSV (PCR) NEGATIVE (Negative) Group A Strep Antibody NEGATIVE (NEGATIVE) - Progress Progress: improved - Departure Departure Disposition: Home Clinical Impression: Sinusitis, Bronchitis, Pyrexia Condition: Stable Critical Care Time: No Referrals: KAMALA HOOD MD [Primary Care Provider] - Plan of Treatment: FOLLOW UP WITH PCP NEXT WEEK RETURN TO ER NEEDED TAKE MEDICATIONS DIRECTED TYLENOL NEEDED FOR FEVER Prescriptions: Albuterol Sulfate [Albuterol Sulfate Hfa] 18 gm IH Q6-8HPRN PRN 14 Days #1 [email or web address] PRN Reason: Shortness Of Breath Azithromycin 250 mg [Zithromax 250 MG TABLET] 250 mg PO ZPACK #6 tablet
[2019-04-10 11:19] LABS: Absolute Neutrophil Ct (ANC) 7.07 (1.4-6.9); BASOPHIL % 0.3 % (0.0-0.4); Basophil (Absolute #) 0.03 (0-0.4); Eosinophil % 0.8 % (0.00-5.0); Eosinophil (Absolute #) 0.07 (0-0.5); Hematocrit 42.8 % (35-47); Hemoglobin 13.9 gm/dl (12.0-16.0); Lymphocyte (Absolute #) 1.19 (1.0-4.6); Lymphocytes % 12.9 % (24.0-44.0); Mean Cell Volume 86.8 fl (78-100); Mean Corpuscular Hemoglobin 28.2 pg (26-32); Mean Corpuscular Hgb Concent. 32.5 g/dl (32-36); Mean Platelet Volume 10.8 fl (6-9.5); Monocyte (Absolute #) 0.84 (0.0-1.3); Monocytes % 9.1 % (0.0-12.0); Neutrophil % 76.9 % (36.0-66.0); Platelet Count 225 K/mm3 (150-450); Red Blood Count 4.93 M/mm3 (4.1-5.4); Red Cell Distribution Width 13.1 % (11.5-14.0); White Blood Count 9.2 K/mm3 (4.0-10.5)
[2019-04-10 11:28] LABS: ALBUMIN 4.2 g/dL (3.5-5.0); ALKALINE PHOSPHATASE 97 U/L (38-126); ANION GAP 12.2 MEQ/L (5-15); BLOOD UREA NITROGEN 10 mg/dL (7-17); CHLORIDE 103 mmol/L (98-107); Calcium 9.3 mg/dL (8.4-10.2); Carbon Dioxide 28 mmol/L (22-30); Creatinine 1 0.84 mg/dL (0.52-1.04); Glucose 99 mg/dL (74-106); Potassium 4.5 mmol/L (3.5-5.1); SGOT/AST 21 U/L (14-36); SGPT/ALT 22 U/L (0-35); SODIUM 139 mmol/L (137-145); Total Protein 7.7 g/dL (6.3-8.2)
[2019-04-10 11:35] LABS: Appearance SLIGHTLY CLOUDY (CLEAR); Bacteria RARE /HPF (NEGATIVE); Bilirubin NEGATIVE (NEGATIVE); Blood NEGATIVE Ery/ul (0-5); Epithelial Cells RARE /HPF (FEW); Glucose NEGATIVE (NEGATIVE); Ketones NEGATIVE (NEGATIVE); Leukocyte Esterase TRACE (NEGATIVE); Mucus SLIGHT /HPF (NEGATIVE); Nitrite NEGATIVE (NEGATIVE); Protein,Urine Dip NEGATIVE (Negative); Specific Gravity 1.019 (1.005-1.025); Urobilinogen NEGATIVE mg/dL (0-1); WBC 0-2 /HPF (0-5)
[2019-04-10] MEDS ORDERED: TYLENOL EXTRA STRENGTH 500 MG PO STA (11:54)
[2019-04-10] MEDS ORDERED: TYLENOL EXTRA STRENGTH 500 MG ONE (11:56)
[2019-04-10 12:04] LABS: Group A Strep NEGATIVE (NEGATIVE); INFLUENZA A NEGATIVE (NEGATIVE); INFLUENZA B NEGATIVE (NEGATIVE); RESPIRATORY SYNCTIAL VIRUS NEGATIVE (Negative)
[2019-04-10 12:52] VITALS: BP 114/70; PULSE 102; O2SAT 98
== END 2019-04-10 12:52 | disposition home or self-care (01) ==
LOC: ED 09:41
DX: J32.9 Chronic sinusitis, unspecified (principal); J40 Bronchitis, not specified as acute or chronic; R50.9 Fever, unspecified
CPT/HCPCS: 36415; 80053; 81001; 84703; 85025; 87631; 87651; 99284; A9270-GY

== ENCOUNTER 2019-12-20 17:34 | Emergency (ER) | payer OTHER ==
[2019-12-20] MEDS ORDERED: Sodium Chloride 0.9% 1000 ML 1,000 ML IV STA (18:09)
[2019-12-20] MEDS ORDERED: MORPHINE SULFATE 4 MG INJ IV ONE (18:09)
[2019-12-20] MEDS ORDERED: Zofran 4 MG/2 ML VIAL IV ONE (18:09)
--- NOTE | 2019-12-20 18:17 | ERPHSYRPT ---
- History of Present Illness Historian: patient Exam Limitations: no limitations Patient Subjective Stated Complaint: abd pain Triage Nursing Assessment: pt to ED c/o upper bilat abd pain x 1 week intermittently, states it ranges from worst pain ever to just moderately albert nful, she has not been pain free x 1 week. nothing makes worse or better, active bowel sounds, denies urinary problems, diarrhea last week and nausea last week, no emesis. Timing/Duration: week(s) (1), intermittent, gradual onset, worse Activities at Onset: rest Quality: sharpness, stabbing Abdominal Pain Onset Location: RUQ, LUQ, epigastric, periumbilical Pain Radiation: no radiation Severity of Pain-Max: severe Severity of Pain-Current: severe Modifying Factors: Improves With: nothing Associated Symptoms: nausea Previous symptoms: no prior history Hx Tetanus, Diphtheria Vaccination/Date Given: No Hx Influenza Vaccination/Date Given: Yes Hx Pneumococcal Vaccination/Date Given: No <STEVEN KIMBLE - Last Filed: 12/20/19 18:15> <YOU JOAQUIN - Last Filed: 12/20/19 21:07> - History of Present Illness Time Seen by Provider: 12/20/19 17:55 Physician History: 24 years old female presented in the ER with chief complaint of upper abdominal pain off and on for the last 1 week, lasting for almost 30 minutes and improved but today pain is not improving and worsening, moderate to severe intensity sharp in nature, nonradiating, associated with nausea but no vomiting. Patient denies any association with oral intake/fatty food intake. Patient is on a special diet for weight loss. (STEVEN KIMBLE) Allergies/Adverse Reactions: No Known Drug Allergies Allergy (Verified 12/20/19 17:59) Travel Risk - International Travel Have you traveled outside of the country in past 3 weeks: No - Coronavirus Screening Are you exhibiting any of the following symptoms?: Yes Symptoms: Vomiting/Diarrhea Close contact with a COVID-19 positive Pt in past 14-21 Days: No <STEVEN KIMBLE - Last Filed: 12/20/19 18:15> - Review of Systems Constitutional: No Symptoms Eyes: No Symptoms Ears, Nose, & Throat: No Symptoms Respiratory: No Symptoms Cardiac: No Symptoms Abdominal/Gastrointestinal: Abdominal Pain, Nausea Genitourinary Symptoms: No Symptoms Musculoskeletal: No Symptoms Skin: No Symptoms Neurological: No Symptoms Psychological: No Symptoms Endocrine: No Symptoms Hematologic/Lymphatic: No Symptoms Immunological/Allergic: No Symptoms <SHYANNESTEVEN - Last Filed: 12/20/19 18:15> - Past Medical History Pertinent Past Medical History: Yes Neurological History: No Pertinent History ENT History: No Pertinent History Cardiac History: No Pertinent History Respiratory History: No Pertinent History Endocrine Medical History: No Pertinent History Musculoskeletal History: No Pertinent History GI Medical History: No Pertinent History History: Other Psycho-Social History: Anxiety Female Reproductive Disorders: No Pertinent History Other Medical History: KIDNEY STONES, preeclampsia - Past Surgical History Past Surgical History: Yes Neuro Surgical History: No Pertinent History Cardiac: No Pertinent History Respiratory: No Pertinent History Gastrointestinal: No Pertinent History Genitourinary: Kidney Surgery Musculoskeletal: No Pertinent History Female Surgical History: No Pertinent History Other Surgical History: WISDOM TEETH. KIDNEY STONE SURGICALLY REMOVED - Social History Smoking Status: Current every day smoker How long have you smoked: 4 YEARS Exposure to second hand smoke: No Drug Use: none Patient Lives Alone: No Significant Family History: no pertinent family hx - Female History Hx Last Menstrual Period: 12/13/19 Hx Now: No <SHYANNESTEVEN - Last Filed: 12/20/19 18:15> - Physical Exam General Appearance: no apparent distress, alert Eye Exam: PERRL/EOMI, eyes nml inspection Ears, Nose, Throat Exam: normal ENT inspection, pharynx normal Neck Exam: normal inspection, non-tender, supple, full range of motion Respiratory Exam: normal breath sounds, lungs clear Cardiovascular Exam: regular rate/rhythm, normal heart sounds Gastrointestinal/Abdomen Exam: soft, tenderness (Abdomen bilateral, periumbilical area. No guarding.) Back Exam: normal inspection Extremity Exam: normal inspection, normal range of motion Neurologic Exam: alert, oriented x 3, cooperative Skin Exam: normal color SpO2 Interpretation: normal SpO2: 98 O2 Delivery: Room Air <SHYANNESTEVEN - Last Filed: 12/20/19 18:15> - Nursing Vital Signs Nursing Vital Signs: Initial Vital Signs Temperature 98.2 F 12/20/19 17:52 Pulse Rate 84 12/20/19 17:52 Respiratory Rate 18 12/20/19 17:52 Blood Pressure 149/90 12/20/19 17:52 O2 Sat by Pulse Oximetry 98 12/20/19 17:52 Pain Scale Pain Intensity 4 - Course Nursing assessment & vital signs reviewed: Yes <YOU JOAQUIN - Last Filed: 12/20/19 21:07> Ordered Tests: Active Orders 24 hr Category Date Time Status IV Insertion STAT Care 12/20/19 18:09 Active NPO (ED) STAT Care 12/20/19 18:09 Active ABDOMEN AND PELVIS W CONTRAST [CT] Stat Exams 12/20/19 18:10 Taken CBC W DIFF Stat Lab 12/20/19 18:24 Completed CMP Stat Lab 12/20/19 18:24 Completed HCG,QUALITATIVE URINE Stat Lab 12/20/19 18:54 Completed LIPASE Stat Lab 12/20/19 18:24 Completed UA W/RFX UR CULTURE Stat Lab 12/20/19 18:54 Completed Medication Summary Discontinued Medications Generic Name Dose Route Start Last Admin Trade Name Freq PRN Reason Stop Dose Admin Hydromorphone HCl 1 mg 12/20/19 20:57 Hydromorphone 1 Mg/Ml Ampule IV 12/20/19 20:58 STAT ONE Sodium Chloride 1,000 mls @ 999 mls/hr 12/20/19 18:09 12/20/19 20:54 Sodium Chloride 0.9% 1000 Ml IV 12/20/19 19:09 Infused .Q1H1M STA Infusion Sodium Chloride Confirm 12/20/19 18:25 Sodium Chloride 0.9% 1000 Ml Administered 12/20/19 18:26 Dose 1,000 mls @ ud .ROUTE .STK-MED ONE Ceftriaxone Sodium/Dextrose 1 g in 50 mls @ 100 mls/hr 12/20/19 19:10 12/20/19 20:54 Rocephin 1 Gm-D5w 50 Ml Bag IV 12/20/19 19:39 Infused STAT STA Infusion Ceftriaxone Sodium/Dextrose Confirm 12/20/19 19:21 Rocephin 1 Gm-D5w 50 Ml Bag Administered 12/20/19 19:22 Dose 1 g in 50 mls @ ud IV .STK-MED ONE Metronidazole 500 mg 12/20/19 20:58 Flagyl 500 Mg PO 12/20/19 20:59 STAT ONE Morphine Sulfate 4 mg 12/20/19 18:09 12/20/19 18:26 Morphine Sulfate 4 Mg Inj IV 12/20/19 18:10 4 mg STAT ONE Administration Morphine Sulfate Confirm 12/20/19 18:25 Morphine Sulfate 4 Mg Inj Administered 12/20/19 18:26 Dose 4 mg .ROUTE .STK-MED ONE Ondansetron HCl 4 mg 12/20/19 18:09 12/20/19 18:26 Zofran 4 Mg/2 Ml Vial IV 12/20/19 18:10 4 mg STAT ONE Administration Ondansetron HCl Confirm 12/20/19 18:25 Zofran 4 Mg/2 Ml Vial Administered 12/20/19 18:26 Dose 4 mg .ROUTE .STK-MED ONE Lab/Rad Data: Laboratory Result Diagrams 12/20/19 18:24 12/20/19 18:24 Laboratory Results 12/20/19 12/20/19 12/20/19 Range/Units 18:54 18:54 18:24 WBC (4.0-10.5) K/mm3 RBC (4.1-5.4) M/mm3 Hgb (12.0-16.0) gm/dl Hct (35-47) % MCV (78-100) fl MCH (26-32) pg MCHC (32-36) g/dl RDW (11.5-14.0) % Plt Count (150-450) K/mm3 MPV (7.5-11.0) fl Gran % (36.0-66.0) % Eos # (Auto) (0-0.5) Absolute Lymphs (auto) (1.0-4.6) Absolute Monos (auto) (0.0-1.3) Lymphocytes % (24.0-44.0) % Monocytes % (0.0-12.0) % Eosinophils % (0.00-5.0) % Basophils % (0.0-0.4) % Absolute Granulocytes (1.4-6.9) Basophils # (0-0.4) Sodium 138 (137-145) mmol/L Potassium 3.9 (3.5-5.1) mmol/L Chloride 107 (98-107) mmol/L Carbon Dioxide 22 (22-30) mmol/L Anion Gap 12.5 (5-15) MEQ/L BUN 19 H (7-17) mg/dL Creatinine 0.78 (0.52-1.04) mg/dL Estimated GFR > 60.0 ML/MIN Glucose 105 (74-106) mg/dL Calcium 9.7 (8.4-10.2) mg/dL Total Bilirubin 0.40 (0.2-1.3) mg/dL AST 25 (14-36) U/L ALT 27 (0-35) U/L Alkaline Phosphatase 103 (38-126) U/L Serum Total Protein 7.4 (6.3-8.2) g/dL Albumin 4.4 (3.5-5.0) g/dL Lipase 77 (23-300) U/L Urine Color YELLOW (YELLOW) Urine Appearance TURBID (CLEAR) Urine pH 7.0 (5-6) Ur Specific [place] 1.018 (1.005-1.025) Urine Protein NEGATIVE (Negative) Urine Ketones NEGATIVE (NEGATIVE) Urine Blood NEGATIVE (0-5) Obed/ul Urine Nitrite NEGATIVE (NEGATIVE) Urine Bilirubin NEGATIVE (NEGATIVE) Urine Urobilinogen NEGATIVE (0-1) mg/dL Ur Leukocyte Esterase TRACE (NEGATIVE) Urine WBC (Auto) 3-5 (0-5) /HPF Urine RBC (Auto) 3-5 (0-2) /HPF U Epithel Cells (Auto) RARE (FEW) /HPF Urine Bacteria (Auto) NONE SEEN (NEGATIVE) /HPF Amorphous Crystals FEW (NEGATIVE) /HPF Other Casts (Auto) >50 (NEGATIVE) /LPF Urine Culture Reflexed NO (NO) Urine Glucose NEGATIVE (NEGATIVE) mg/dL Urine HCG, Qual NEGATIVE (Negative) 12/20/19 Range/Units 18:24 WBC 11.0 H (4.0-10.5) K/mm3 RBC 4.92 (4.1-5.4) M/mm3 Hgb 14.4 (12.0-16.0) gm/dl Hct 43.1 (35-47) % MCV 87.6 (78-100) fl MCH 29.3 (26-32) pg MCHC 33.4 (32-36) g/dl RDW 13.0 (11.5-14.0) % Plt Count 282 (150-450) K/mm3 MPV 10.9 (7.5-11.0) fl Gran % 63.6 (36.0-66.0) % Eos # (Auto) 0.65 H (0-0.5) Absolute Lymphs (auto) 2.57 (1.0-4.6) Absolute Monos (auto) 0.76 (0.0-1.3) Lymphocytes % 23.3 L (24.0-44.0) % Monocytes % 6.9 (0.0-12.0) % Eosinophils % 5.9 H (0.00-5.0) % Basophils % 0.3 (0.0-0.4) % Absolute Granulocytes 7.01 H (1.4-6.9) Basophils # 0.03 (0-0.4) Sodium (137-145) mmol/L Potassium (3.5-5.1) mmol/L Chloride (98-107) mmol/L Carbon Dioxide (22-30) mmol/L Anion Gap (5-15) MEQ/L BUN (7-17) mg/dL Creatinine (0.52-1.04) mg/dL Estimated GFR ML/MIN Glucose (74-106) mg/dL Calcium (8.4-10.2) mg/dL Total Bilirubin (0.2-1.3) mg/dL AST (14-36) U/L ALT (0-35) U/L Alkaline Phosphatase (38-126) U/L Serum Total Protein (6.3-8.2) g/dL Albumin (3.5-5.0) g/dL Lipase (23-300) U/L Urine Color (YELLOW) Urine Appearance (CLEAR) Urine pH (5-6) Ur Specific [place] (1.005-1.025) Urine Protein (Negative) Urine Ketones (NEGATIVE) Urine Blood (0-5) Obed/ul Urine Nitrite (NEGATIVE) Urine Bilirubin (NEGATIVE) Urine Urobilinogen (0-1) mg/dL Ur Leukocyte Esterase (NEGATIVE) Urine WBC (Auto) (0-5) /HPF Urine RBC (Auto) (0-2) /HPF U Epithel Cells (Auto) (FEW) /HPF Urine Bacteria (Auto) (NEGATIVE) /HPF Amorphous Crystals (NEGATIVE) /HPF Other Casts (Auto) (NEGATIVE) /LPF Urine Culture Reflexed (NO) Urine Glucose (NEGATIVE) mg/dL Urine HCG, Qual (Negative) - Progress Progress: improved, pain not gone completely, re-examined Counseled pt/family regarding: lab results, diagnosis, need for follow-up, rad results <YOU JOAQUIN - Last Filed: 12/20/19 21:07> - Progress Progress Note: 12/20/19 21:02 CAT scan of the abdomen pelvis shows no calculi in the kidneys or urinary collecting system. There is no evidence of hydronephrosis. There is no definite acute abdominal or pelvic findings but there appears to be mild thickening of the small bowel wall which can be seen with enteritis. (Charles JOAQUIN) <STEVEN KIMBLE - Last Filed: 12/20/19 18:15> - Departure Departure Disposition: Home Critical Care Time: No <YOU JOAQUIN - Last Filed: 12/20/19 21:07> - Departure Clinical Impression: Regional enteritis of small bowel Condition: Stable Referrals: BRANDON MCKENNA REPAIRING CALIBRATOR [Primary Care Provider] - Additional Instructions: Drink plenty of fluids. Take medication as prescribed. Follow-up with your primary care physician for further management. Prescriptions: Hydrocodone/APAP 5/325 [[place] 5/325 mg] 1 each PO Q8H PRN PRN #8 tablet MDD 3 PRN Reason: Pain Ciprofloxacin [Cipro 500 MG] 500 mg PO BID #14 tablet Metronidazole 500 mg [Flagyl 500 MG] 500 mg PO TID #21 tablet
[2019-12-20] MEDS ORDERED: Sodium Chloride 0.9% 1000 ML 1,000 ML ONE (18:25)
[2019-12-20] MEDS ORDERED: MORPHINE SULFATE 4 MG INJ ONE (18:25)
[2019-12-20] MEDS ORDERED: Zofran 4 MG/2 ML VIAL ONE (18:25)
[2019-12-20 18:27] LABS: Absolute Neutrophil Ct (ANC) 7.01 (1.4-6.9); BASOPHIL % 0.3 % (0.0-0.4); Basophil (Absolute #) 0.03 (0-0.4); Eosinophil % 5.9 % (0.00-5.0); Eosinophil (Absolute #) 0.65 (0-0.5); Hematocrit 43.1 % (35-47); Hemoglobin 14.4 gm/dl (12.0-16.0); Lymphocyte (Absolute #) 2.57 (1.0-4.6); Lymphocytes % 23.3 % (24.0-44.0); Mean Cell Volume 87.6 fl (78-100); Mean Corpuscular Hemoglobin 29.3 pg (26-32); Mean Corpuscular Hgb Concent. 33.4 g/dl (32-36); Mean Platelet Volume 10.9 fl (7.5-11.0); Monocyte (Absolute #) 0.76 (0.0-1.3); Monocytes % 6.9 % (0.0-12.0); Neutrophil % 63.6 % (36.0-66.0); Platelet Count 282 K/mm3 (150-450); Red Blood Count 4.92 M/mm3 (4.1-5.4)
[2019-12-20 18:37] LABS: ALBUMIN 4.4 g/dL (3.5-5.0); ALKALINE PHOSPHATASE 103 U/L (38-126); ANION GAP 12.5 MEQ/L (5-15); BLOOD UREA NITROGEN 19 mg/dL (7-17); CHLORIDE 107 mmol/L (98-107); Calcium 9.7 mg/dL (8.4-10.2); Carbon Dioxide 22 mmol/L (22-30); Creatinine 1 0.78 mg/dL (0.52-1.04); EST GLOMERULAR FILTRATION RATE > 60.0 ML/MIN; Glucose 105 mg/dL (74-106); LIPASE 77 U/L (23-300); Potassium 3.9 mmol/L (3.5-5.1); SGOT/AST 25 U/L (14-36); SGPT/ALT 27 U/L (0-35); SODIUM 138 mmol/L (137-145); Total Protein 7.4 g/dL (6.3-8.2)
[2019-12-20 19:03] LABS: Amourphous Crystal FEW /HPF (NEGATIVE); Appearance TURBID (CLEAR); Bacteria NONE SEEN /HPF (NEGATIVE); Bilirubin NEGATIVE (NEGATIVE); Blood NEGATIVE Ery/ul (0-5); Epithelial Cells RARE /HPF (FEW); Glucose NEGATIVE (NEGATIVE); Ketones NEGATIVE (NEGATIVE); Leukocyte Esterase TRACE (NEGATIVE); Nitrite NEGATIVE (NEGATIVE); Protein,Urine Dip NEGATIVE (Negative); Specific Gravity 1.018 (1.005-1.025); Urobilinogen NEGATIVE mg/dL (0-1)
[2019-12-20] MEDS ORDERED: ROCEPHIN 1 Gm-D5w 50 ml Bag** 1 G/50 ML IVPB IV STA (19:10)
[2019-12-20] MEDS ORDERED: ROCEPHIN 1 Gm-D5w 50 ml Bag** 1 G/50 ML IVPB IV ONE (19:21)
[2019-12-20 20:51] VITALS: O2SAT 99
[2019-12-20] MEDS ORDERED: Hydromorphone 1 mg/ml Ampule IV ONE (20:57)
[2019-12-20] MEDS ORDERED: Flagyl 500 MG PO ONE (20:58)
[2019-12-20] MEDS ORDERED: Flagyl 500 MG ONE (21:06)
[2019-12-20] MEDS ORDERED: Hydromorphone 1 mg/ml Ampule ONE (21:06)
[2019-12-20 21:16] VITALS: BP 117/75; PULSE 89
--- NOTE | 2019-12-20 21:30 | XRAY ---
Indication: Abdomen pain, nausea, and elevated WBC. Multiple contiguous axial images obtained through the abdomen and pelvis using 80 cc Isovue 370 contrast. Comparison: January 03, 2017. Lung bases demonstrate minimal fibrosis/scarring and tiny lingula ossified granuloma. No infiltrate or effusion. Heart is not enlarged. Stomach is mildly distended with food/fluid. Noncontrasted stomach and bowel loops appear nonobstructed. Left abdomen jejunal bowel loops now demonstrates mild fluid distention with potential wall thickening, possible enteritis. Normal air-filled appendix. Mild fluid distended colon throughout including rectum favoring diarrhea. Uterus demonstrates new IUD in situ. Continued 14 cm splenomegaly. No free fluid/air. Remaining liver, gallbladder, pancreas, spleen, adrenal glands, kidneys, ureters, bladder, uterus, and aorta appear unremarkable. No pathologic retroperitoneal lymphadenopathy. Osseous structures intact. Impression: 1. New mild fluid distended jejunal bowel loops with wall thickening. Rule out enteritis. Also mild fluid distended colon throughout its favoring diarrhea. 2. New IUD in situ. 3. Again incidental splenomegaly. Comment: Preliminary interpretation was made by [facility] who does not report findings of the colon and incidental splenomegaly.
== END 2019-12-20 21:49 | disposition home or self-care (01) ==
LOC: ED 17:34
DX: K50.00 Crohn's disease of small intestine without complications (principal)
CPT/HCPCS: 36415; 74177; 80053; 81001; 83690; 84703; 85025; 96365; 96374; 96375; 99284; J0696; J1170; J2270; J2405; A9270-GY

== ENCOUNTER 2021-07-28 21:24 | Emergency (ER) | payer OTHER ==
[2021-07-28] MEDS ORDERED: TYLENOL 325 MG PO ONE (21:46)
--- NOTE | 2021-07-28 21:49 | ERPHSYRPT ---
- History of Present Illness Time Seen by Provider: 07/28/21 21:40 Source: patient Exam Limitations: no limitations Patient Subjective Stated Complaint: pt states "I was going down the stairs and rolled my ankle and heard it pop." Triage Nursing Assessment: pt came into the er via wheelchair; pt is axo x4; c/o rt ankle injury; pt states 5/10 pain to rt ankle; pt has good cap refill to [facility]; strong pedal pulse to rt foot; slight swelling to rt footl; no bruising or deformity present; vital wnl Physician History: Patient is a 26-year-old female presents to our ED for evaluation of right ankle pain. Patient states she was descending stairs and inverted her right foot. Pain described as an ache that is well localized. No radiation. Pain worse with movement and palpation. Weightbearing also reproduces pain. No other injuries reported. No knee hip or back pain. There is no fall. No BHT or LOC. No neck pain. Cervical spine cleared clinically. Patient is otherwise healthy. She voices no other complaints concerns at this time. Method of Injury: twisted Occurred: just prior to arrival Quality: constant Severity of Pain-Max: moderate Severity of Pain-Current: mild Lower Extremities Pain: ankle: right Modifying Factors: Improves With: movement, rest Associated Symptoms: none Allergies/Adverse Reactions: No Known Drug Allergies Allergy (Verified 07/28/21 21:30) Home Medications: No Reportable Medications [No Reported Medications] 07/28/21 [History] Hx Tetanus, Diphtheria Vaccination/Date Given: Yes Hx Influenza Vaccination/Date Given: No Hx Pneumococcal Vaccination/Date Given: No Travel Risk - International Travel Have you traveled outside of the country in past 3 weeks: No - Coronavirus Screening Are you exhibiting any of the following symptoms?: No Close contact with a COVID-19 positive Pt in past 14-21 Days: No - Vaccine Status Have you recieved a Covid-19 vaccination: No - Review of Systems Constitutional: No Symptoms, No Fever, No Chills Eyes: No Symptoms Ears, Nose, & Throat: No Symptoms Respiratory: No Symptoms, No Cough, No Dyspnea Cardiac: No Symptoms, No Chest Pain, No Edema, No Syncope Abdominal/Gastrointestinal: No Symptoms, No Abdominal Pain, No Nausea, No Vomiting, No Diarrhea Genitourinary Symptoms: No Symptoms, No Dysuria Musculoskeletal: No Symptoms, No Back Pain, No Neck Pain Skin: No Symptoms, No Rash Neurological: No Symptoms, No Dizziness, No Focal Weakness, No Sensory Changes Psychological: No Symptoms Endocrine: No Symptoms Hematologic/Lymphatic: No Symptoms Immunological/Allergic: No Symptoms All Other Systems: Reviewed and Negative - Past Medical History Pertinent Past Medical History: Yes Neurological History: No Pertinent History ENT History: No Pertinent History Cardiac History: No Pertinent History Respiratory History: No Pertinent History Endocrine Medical History: No Pertinent History Musculoskeletal History: No Pertinent History GI Medical History: No Pertinent History History: Other Psycho-Social History: Anxiety, Depression Female Reproductive Disorders: No Pertinent History Other Medical History: KIDNEY STONES, preeclampsia - Past Surgical History Past Surgical History: Yes Neuro Surgical History: No Pertinent History Cardiac: No Pertinent History Respiratory: No Pertinent History Gastrointestinal: No Pertinent History Genitourinary: Kidney Surgery Musculoskeletal: No Pertinent History Female Surgical History: No Pertinent History Other Surgical History: WISDOM TEETH. KIDNEY STONE SURGICALLY REMOVED - Social History Smoking Status: Former smoker How long have you smoked: 4 YEARS Exposure to second hand smoke: No Drug Use: none Patient Lives Alone: No Significant Family History: no pertinent family hx - Female History Hx Now: No - Nursing Vital Signs Nursing Vital Signs: Initial Vital Signs Temperature 98.9 F 07/28/21 21:32 Pulse Rate 99 H 07/28/21 21:32 Respiratory Rate 18 07/28/21 21:32 Blood Pressure 142/89 07/28/21 21:32 O2 Sat by Pulse Oximetry 98 07/28/21 21:32 Pain Scale Pain Intensity 5 - Physical Exam General Appearance: no apparent distress, alert Eyes, Ears, Nose, Throat Exam: moist mucous membranes Neck Exam: non-tender, supple Cardiovascular/Respiratory Exam: chest non-tender, normal breath sounds, regular rate/rhythm, no respiratory distress Gastrointestinal/Abdominal Exam: non-tender, soft, guarding Back Exam: normal inspection, No vertebral tenderness Hips Exam: bilateral: non-tender, normal inspection, normal range of motion, no evidence of injury Legs Exam: bilateral leg: non-tender, normal inspection, normal range of motion, no evidence of injury Knees Exam: bilateral knee: non-tender, normal inspection, normal range of motion, no evidence of injury Ankle Exam: right ankle: soft tissue tenderness, swelling, other (Soft tissue swelling lateral malleolus. Extremity neurovascular intact distally. Compartments soft. Cap refill less than 2 seconds.), left ankle: non-tender, normal inspection, normal range of motion, no evidence of injury Foot Exam: bilateral foot: non-tender, normal inspection, normal range of motion, no evidence of injury Neuro/Tendon Exam: normal sensation, normal motor functions, normal tendon functions Mental Status Exam: alert, oriented x 3, cooperative Skin Exam: normal color, warm, dry SpO2 Interpretation: normal SpO2: 98 O2 Delivery: Room Air - Course Nursing assessment & vital signs reviewed: Yes - Radiology Exams Ankle X-ray Interpretation: Interpreted by me (No fracture dislocations. Soft tissue swelling lateral malleolus. Os trigonum) Ordered Tests: Active Orders 24 hr Category Date Time Status ANKLE (3 VIEWS) Stat Exams 07/28/21 21:41 Taken Medication Summary Discontinued Medications Generic Name Dose Route Start Last Admin Trade Name Freq PRN Reason Stop Dose Admin Acetaminophen 975 mg 07/28/21 21:46 07/28/21 21:52 Acetaminophen 325 Mg Tablet PO 07/28/21 21:47 975 mg STAT ONE Administration Acetaminophen Confirm 07/28/21 21:51 Acetaminophen 325 Mg Tablet Administered 07/28/21 21:52 Dose 975 mg .ROUTE .STK-MED ONE - Progress Progress: improved Progress Note: Patient received Tylenol for pain. Cold pack applied to injured ankle. Patient received bilateral axillary crutches with an Kilo wrap. X-ray negative for fracture dislocation. Incidental os trigonum. No indication for further work- up at this time. Patient referred to orthopedic clinic for follow-up. Plan of care discussed with patient. She agrees to follow-up in the orthopedic clinic within 48 hours for evaluation. She voices no other complaints or concerns at this time. Portions of this note were created with voice recognition technology. There may be grammatical, spelling, punctuation or sound alike errors 07/28/21 21:55 Counseled pt/family regarding: diagnosis, need for follow-up, rad results - Departure Departure Disposition: Home Clinical Impression: Ankle sprain Condition: Stable Critical Care Time: No Referrals: BRANDON MCKENNA, PROVIDER RELATIONS MANAGER [Primary Care Provider] - Follow up/PCP as directed Additional Instructions: Discharge/Care Plan SKY JUAN ANNMARIE LEX was seen on 04/14/22 in the Emergency Room. The patient was counseled regarding Diagnosis,Lab results, Imaging studies, need for follow up and when to return to the Emergency Room. Prescriptions given: Discharge Note I have spoken with the patient and/or caregivers. I have explained the patient's condition, diagnosis and treatment plan based on the information available to me at this time. I have answered the patient's and/or caregiver's questions and addressed any concerns. The patient and/or caregivers have as good understanding of the patient's diagnosis, condition and treatment plan as can be expected at this point. The vital signs have been stable. The patient's condition is stable and appropriate for discharge from the emergency department. The patient will pursue further outpatient evaluation with the primary care physician or other designated or consulting physician as outlined in the discharge instructions. The patient and/or caregivers are agreeable to this plan of care and follow-up instructions have been explained in detail. The patient and/or caregivers have received these instruction. The patient/and or caregivers are aware that any significant change in condition or worsening of symptoms should prompt an immediate return to this or the closest emergency department or call 911. Outpatient Orders: Ortho Referral Time Frame: 1 Day, Facility: [facility]. Hosp, Location: [facility]
[2021-07-28] MEDS ORDERED: TYLENOL 325 MG ONE (21:51)
[2021-07-28 22:07] VITALS: BP 118/79; PULSE 91; O2SAT 97
--- NOTE | 2021-07-29 08:45 | XRAY ---
Indication: Pain following fall. Comparison: None 3 view right ankle obtained. No bony, articular, or soft tissue abnormalities.
== END 2021-07-28 22:10 | disposition home or self-care (01) ==
LOC: ED 21:24
DX: S93.401A Sprain of unspecified ligament of right ankle, initial encounter (principal); X50.0XXA Overexertion from strenuous movement or load, initial encounter; M25.571 Pain in right ankle and joints of right foot
CPT/HCPCS: 73610; 99283; A9270-GY

== ENCOUNTER 2022-04-02 21:26 | Emergency (ER) | payer OTHER ==
[2022-04-02] MEDS ORDERED: Adacel Vial IM ONE ×2 (21:50→21:53)
[2022-04-02] MEDS ORDERED: TORAdol 30 mg Injection IM ONE (21:51)
[2022-04-02] MEDS ORDERED: TORAdol 30 mg Injection ONE (21:53)
--- NOTE | 2022-04-02 22:02 | ERPHSYRPT ---
- History of Present Illness Source: patient Exam Limitations: no limitations Patient Subjective Stated Complaint: pt states she was taking the pot off the stove and touched the burner that was hot, sustained burn to most of right palm of hand. Triage Nursing Assessment: pt is in bed. holding hand in cool water, states her pain is 6/10. pt has first degree burn on right palmar surface of hand that incorporates first three digots, half of palm, and side of thumb Physician History: 26 yo wf w burn to palm of R hand after touching it on stove at 17:00 today at home. Pt is R handed and denies other injuries. Pain is moderate to severe. She denies other injuries at this time. Occurred: other (1700 today) Method of Injury: burn Quality: constant Severity of Pain-Max: severe Severity of Pain-Current: severe Extremities Pain Location: hand: right Modifying Factors: Improves With: movement Associated Symptoms: none Allergies/Adverse Reactions: No Known Drug Allergies Allergy (Verified 07/28/21 21:30) Hx Tetanus, Diphtheria Vaccination/Date Given: Yes Hx Influenza Vaccination/Date Given: No Hx Pneumococcal Vaccination/Date Given: No Travel Risk - International Travel Have you traveled outside of the country in past 3 weeks: No - Coronavirus Screening Are you exhibiting any of the following symptoms?: No Close contact with a COVID-19 positive Pt in past 14-21 Days: No - Vaccine Status Have you recieved a Covid-19 vaccination: No - Vaccination Dates Date of 2cond Vaccination (if applicable): unknown - Review of Systems Constitutional: No Symptoms Eyes: No Symptoms Ears, Nose, & Throat: No Symptoms Respiratory: No Symptoms Cardiac: No Symptoms Abdominal/Gastrointestinal: No Symptoms Genitourinary Symptoms: No Symptoms Neurological: No Symptoms Psychological: No Symptoms Endocrine: No Symptoms Hematologic/Lymphatic: No Symptoms Immunological/Allergic: No Symptoms - Past Medical History Pertinent Past Medical History: Yes Neurological History: No Pertinent History ENT History: No Pertinent History Cardiac History: No Pertinent History Respiratory History: No Pertinent History Endocrine Medical History: No Pertinent History Musculoskeletal History: No Pertinent History GI Medical History: No Pertinent History History: Other Psycho-Social History: Anxiety, Depression Female Reproductive Disorders: No Pertinent History Other Medical History: KIDNEY STONES, preeclampsia, PCOS - Past Surgical History Past Surgical History: Yes Neuro Surgical History: No Pertinent History Cardiac: No Pertinent History Respiratory: No Pertinent History Gastrointestinal: No Pertinent History Genitourinary: Kidney Surgery Musculoskeletal: No Pertinent History Female Surgical History: No Pertinent History Other Surgical History: WISDOM TEETH. KIDNEY STONE SURGICALLY REMOVED - Social History Smoking Status: Never smoker How long have you smoked: 4 YEARS Exposure to second hand smoke: No Drug Use: none Patient Lives Alone: No Significant Family History: no pertinent family hx - Female History Hx Last Menstrual Period: PCOS- no periods Hx Now: No - Nursing Vital Signs Nursing Vital Signs: Initial Vital Signs Temperature 97.1 F 04/02/22 21:29 Pulse Rate 70 04/02/22 21:29 Respiratory Rate 18 04/02/22 21:29 Blood Pressure 146/106 04/02/22 21:29 O2 Sat by Pulse Oximetry 98 04/02/22 21:29 Pain Scale Pain Intensity 6 Hypertensive - Physical Exam General Appearance: no apparent distress Eyes, Ears, Nose, Throat Exam: normal ENT inspection, TMs normal, pharynx normal, moist mucous membranes Neck Exam: normal inspection, non-tender, supple, full range of motion, No Brudzinski, No Kernig's, No meningismus Cardiovascular/Respiratory Exam: normal breath sounds, regular rate/rhythm, heart sounds normal Abdominal Exam: non-tender Back Exam: normal inspection Shoulder Exam: normal inspection Elbow/Forearm Exam: normal inspection, non-tender Wrist Exam: normal inspection, non-tender Hand Exam: soft tissue tenderness (Pt w first degree burn to palm of R hand/0.5% 1st degree/Very small area of 2nd degree/Good distal capillary return and sensation) Neuro/Tendon Exam: normal sensation, normal motor functions, normal tendon functions, responds to pain, no evidence tendon injury Mental Status Exam: alert, oriented x 3 Skin Exam: normal color, warm, dry SpO2 Interpretation: normal SpO2: 98 O2 Delivery: Room Air - Course Nursing assessment & vital signs reviewed: Yes Ordered Tests: Medication Summary Discontinued Medications Generic Name Dose Route Start Last Admin Trade Name Freq PRN Reason Stop Dose Admin Hydrocodone Bitart/Acetaminophen 1 tab 04/02/22 22:14 04/02/22 22:18 Hydrocodone/Apap 5/325 1 Tab Tablet PO 04/02/22 22:15 1 tab STAT ONE Administration Hydrocodone Bitart/Acetaminophen 2 tab 04/02/22 22:14 04/02/22 22:18 Hydrocodone/Apap 5/325 1 Tab Tablet PO 04/02/22 22:15 2 tab SENT HOME W/ PATIENT ONE Administration Hydrocodone Bitart/Acetaminophen Confirm 04/02/22 22:17 Hydrocodone/Apap 5/325 1 Tab Tablet Administered 04/02/22 22:18 Dose 3 tab .ROUTE .STK-MED ONE Diphtheria/Tetanus/Acell Pertussis 0.5 ml 04/02/22 21:50 04/02/22 21:55 Tdap --Diph,Pertuss(Acell),Tet Vac/Pf 0.5 Ml Vial IM 04/02/22 21:51 0.5 ml .ONCE ONE Administration Diphtheria/Tetanus/Acell Pertussis Confirm 04/02/22 21:53 Tdap --Diph,Pertuss(Acell),Tet Vac/Pf 0.5 Ml Vial Administered 04/02/22 21: 54 Dose 0.5 ml IM .STK-MED ONE Ketorolac Tromethamine 30 mg 04/02/22 21:51 04/02/22 21:55 Ketorolac Tromethamine 30 Mg/Ml Inj IM 04/02/22 21:52 30 mg STAT ONE Administration Ketorolac Tromethamine Confirm 04/02/22 21:53 Ketorolac Tromethamine 30 Mg/Ml Inj Administered 04/02/22 21:54 Dose 30 mg .ROUTE .STK-MED ONE - Progress Progress Note: 04/02/22 22:02 Tdap 30mg IM Toradol 04/02/22 22:15 Bacitracen/Wound dressed per nursing [id number] po x1 Norco5 x2 take home Counseled pt/family regarding: diagnosis, need for follow-up - Departure Departure Disposition: Home Clinical Impression: Burn, hand, first degree Condition: Stable Critical Care Time: No Referrals: BRANDON MCKENNA NP [Primary Care Provider] - Follow up/PCP as directed Instructions: [facility] Additional Instructions: Wash burn twice a day with mild soap/water Apply antibiotic ointment Pain meds as needed(Use a stool softener with pain meds) Follow up with your family MD in 1-2 days Watch for signs of infection-increasing redness/increasing pain/pus/temperature greater than 100.5 Prescriptions: Hydrocodone/Acetaminophen [Hydrocodone-Acetamin 2.5-325] 1 each PO Q4-6HPRN PRN #6 tablet MDD 4 tabs PRN Reason: Pain
[2022-04-02] MEDS ORDERED: NORCO 5/325 MG PO ONE ×2 (22:14)
[2022-04-02] MEDS ORDERED: NORCO 5/325 MG ONE (22:17)
[2022-04-02 22:32] VITALS: BP 142/82; PULSE 76
[2022-04-03 03:13] VITALS: O2SAT 98
== END 2022-04-02 22:32 | disposition home or self-care (01) ==
LOC: ED 21:26
DX: T23.151A Burn of first degree of right palm, initial encounter (principal); X15.0XXA Contact with hot stove (kitchen), initial encounter; Y93.G1 Activity, food preparation and clean up; Y92.000 Kitchen of unspecified non-institutional (private) residence as the place of occurrence of the external cause; Z28.310 Unvaccinated for COVID-19
CPT/HCPCS: 90471; 90715; 96372; 99283; J1885; A9270-GY

== ENCOUNTER 2023-05-26 11:27 | Emergency (ER) | payer OTHER ==
[2023-05-26 11:39] VITALS: TEMP 99.2
[2023-05-26] MEDS ORDERED: MORPHINE SULFATE 4 MG INJ ONE ×2 (11:44→12:23)
[2023-05-26] MEDS: MORPHINE SULFATE 4 MG INJ IM ONE (11:45)
[2023-05-26] MEDS ORDERED: TYLENOL EXTRA STRENGTH 500 MG ONE (11:50)
[2023-05-26] MEDS: TYLENOL EXTRA STRENGTH 500 MG PO STA (11:51)
--- NOTE | 2023-05-26 12:25 | ERPHSYRPT ---
- History of Present Illness Time Seen by Provider: 05/26/23 11:40 Source: patient Exam Limitations: no limitations Patient Subjective Stated Complaint: Patient fell down 3 steps at home just prior to coming into the ER and injured her right ankle. Patient had to be assisted up by EMS. Triage Nursing Assessment: Patient arrived by ambulance. EMS has right ankle splinted. Kerlix removed. CMS checks to foot WNL. She is alert and oriented. NO SOB. Skin tone normal. Physician History: 27 years old female presented to the ER via EMS with complains of right ankle pain after she tripped on the stairs and bent her right ankle with a popping sound. Patient was unable to get up and ambulate. She has minimal abrasion left knee with no pain. Pain is moderate to severe sharp right lateral ankle/proximal foot, aggravation with minimal movements and palpation. No numbness or tingling in the toes. Inability weightbearing. No injury anywhere else. Allergies/Adverse Reactions: No Known Drug Allergies Allergy (Verified 05/26/23 11:29) Hx Tetanus, Diphtheria Vaccination/Date Given: Yes Hx Influenza Vaccination/Date Given: No Hx Pneumococcal Vaccination/Date Given: No Immunizations Up to Date: Yes Travel Risk - International Travel Have you traveled outside of the country in past 3 weeks: No - Coronavirus Screening Are you exhibiting any of the following symptoms?: No Close contact with a COVID-19 positive Pt in past 14-21 Days: No - Vaccine Status Have you recieved a Covid-19 vaccination: No - Vaccination Dates Date of 2cond Vaccination (if applicable): unknown - Review of Systems Constitutional: No Symptoms Eyes: No Symptoms Ears, Nose, & Throat: No Symptoms Respiratory: No Symptoms Cardiac: No Symptoms Abdominal/Gastrointestinal: No Symptoms Genitourinary Symptoms: No Symptoms Musculoskeletal: Fall, Injury, Joint Pain, Joint Swelling Skin: No Symptoms Neurological: No Symptoms Endocrine: No Symptoms Hematologic/Lymphatic: No Symptoms - Past Medical History Pertinent Past Medical History: Yes Neurological History: No Pertinent History ENT History: No Pertinent History Cardiac History: No Pertinent History Respiratory History: No Pertinent History Endocrine Medical History: No Pertinent History Musculoskeletal History: No Pertinent History GI Medical History: No Pertinent History History: Other Psycho-Social History: Anxiety, Depression Female Reproductive Disorders: No Pertinent History Other Medical History: KIDNEY STONES, preeclampsia, PCOS - Past Surgical History Past Surgical History: Yes Neuro Surgical History: No Pertinent History Cardiac: No Pertinent History Respiratory: No Pertinent History Gastrointestinal: No Pertinent History Genitourinary: Kidney Surgery Musculoskeletal: No Pertinent History Female Surgical History: No Pertinent History Other Surgical History: WISDOM TEETH. KIDNEY STONE SURGICALLY REMOVED - Social History Smoking Status: Former smoker How long have you smoked: 4 YEARS Exposure to second hand smoke: No Drug Use: none Patient Lives Alone: No Significant Family History: no pertinent family hx - Female History Hx Now: (unkn) - Nursing Vital Signs Nursing Vital Signs: Initial Vital Signs Temperature 99.2 F 05/26/23 11:30 Pulse Rate 100 H 05/26/23 11:30 Respiratory Rate 18 05/26/23 11:30 Blood Pressure 136/107 05/26/23 11:30 O2 Sat by Pulse Oximetry 98 05/26/23 11:30 Pain Scale Pain Intensity 4 - Physical Exam General Appearance: no apparent distress, alert Neck Exam: normal inspection, full range of motion Cardiovascular/Respiratory Exam: normal breath sounds, regular rate/rhythm Gastrointestinal/Abdominal Exam: non-tender, soft Back Exam: normal inspection, rash Hips Exam: bilateral: non-tender, normal inspection, normal range of motion Legs Exam: bilateral leg: non-tender, normal inspection, normal range of motion Knees Exam: right knee: normal inspection, bilateral knee: non-tender, normal range of motion, no evidence of injury Ankle Exam: right ankle: bone tenderness (Lateral malleolus), limited range of motion, pain, soft tissue tenderness, swelling, left ankle: non-tender, normal inspection, normal range of motion, no evidence of injury Foot Exam: right foot: bone tenderness (Right proximal foot), left foot: non- tender, normal inspection, normal range of motion, no evidence of injury Neuro/Tendon Exam: normal sensation, normal motor functions Mental Status Exam: alert, oriented x 3, cooperative Skin Exam: normal color SpO2 Interpretation: normal SpO2: 95 O2 Delivery: Room Air Ordered Tests: Active Orders 24 hr Category Date Time Status ANKLE (3 VIEWS) Stat Exams 05/26/23 11:38 Completed Medication Summary Discontinued Medications Generic Name Dose Route Start Last Admin Trade Name Freq PRN Reason Stop Dose Admin Acetaminophen 1,000 mg 05/26/23 11:48 05/26/23 11:51 Acetaminophen 500 Mg Tablet PO 05/26/23 11:49 1,000 mg STAT STA Administration Acetaminophen Confirm 05/26/23 11:50 Acetaminophen 500 Mg Tablet Administered 05/26/23 11:51 Dose 1,000 mg .ROUTE .STK-MED ONE Morphine Sulfate 4 mg 05/26/23 11:38 05/26/23 12:23 Morphine Sulfate 4 Mg/Ml Injection IM 05/26/23 11:39 4 mg STAT ONE Administration Morphine Sulfate Confirm 05/26/23 11:44 Morphine Sulfate 4 Mg/Ml Injection Administered 05/26/23 11:45 Dose 4 mg .ROUTE .STK-MED ONE Morphine Sulfate Confirm 05/26/23 12:23 Morphine Sulfate 4 Mg/Ml Injection Administered 05/26/23 12:24 Dose 4 mg .ROUTE .STK-MED ONE - Progress Progress: pain not gone completely, re-examined Progress Note: 05/26/23 13:28 27 years old is evaluated for right ankle pain and swelling after she fell from stairs and twisted it with a snapping sound. Patient has tenderness more on the right lateral malleolus than the medial. No obvious deformity. Distal neurovascular intact. She is given symptomatic treatment. X-rays are negative for fracture dislocation. I believe patient has ligamentous injury/strain/sprain. Placed in a posterior Ortho-Glass splint. Crutches/nonweightbearing, intermittent ice application and outpatient podiatry/orthopedics follow-up. Discussed signs symptoms of worsening needing return to ER which she seems understanding. Counseled pt/family regarding: diagnosis, need for follow-up, rad results Medical Desision Making - Independent Historian Additional History obtained from: Spouse, [employer] Teacher/EMT - Diagnostic Testing Diagnostic test were ordered, analyzed, and reviewed by me: Yes Radiological Interpretation: Reviewed by me - Risk of complications The pt has a mod risk of morbidity or mortality based on: Need for prescription drug management - Departure Departure Disposition: Home Clinical Impression: Right ankle sprain Condition: Stable Critical Care Time: No Referrals: BRANDON MCKENNA NP [Primary Care Provider] - Follow up with PCP 1 day ABBI CLOUD DPM [ACTIVE STAFF] - Follow up/PCP as directed (Sunday for reevaluation) Instructions: Ankle Sprain ED Additional Instructions: Nonweightbearing, intermittent ice application, pain medications as needed. Keep it elevated. Follow-up with podiatry for reevaluation Sunday. Return to ER for any worsening. Prescriptions: Hydrocodone/Acetaminophen [Hydrocodone-Acetamin 7.5-325] 1 each PO Q6HPRN PRN 3 Days #12 tablet MDD 4 PRN Reason: Pain
[2023-05-26 12:50] VITALS: RESP 16
--- NOTE | 2023-05-26 13:09 | XRAY ---
CLINICAL HISTORY: fall TECHNIQUE: X-ray of Right ankle AP, lateral and oblique views. COMPARISON: None. FINDINGS: Normal bone density. No fracture or bony abnormality was seen. Ankle joint space is preserved. Fat planes are intact. IMPRESSION: X-ray Right ankle appears normal. (Disclaimer: "A subtle bone abnormality or fracture may not be readily apparent on x-rays, thus clinical correlation and further imaging including follow-up CT, MRI, or follow-up x-rays are advised as needed"). Electronically Signed by: Devang Ballesteros MD. (05/26/2023 13:05:52 EST)
[2023-05-26] MEDS ORDERED: NORCO 5/325 MG ONE (13:30)
[2023-05-26] MEDS: NORCO 5/325 MG PO ONE (13:32)
[2023-05-26 13:33] VITALS: O2SAT 95
[2023-05-26 14:04] VITALS: BP 104/55; PULSE 80
== END 2023-05-26 14:10 | disposition home or self-care (01) ==
LOC: ED 11:27
DX: S93.401A Sprain of unspecified ligament of right ankle, initial encounter (principal); W10.9XXA Fall (on) (from) unspecified stairs and steps, initial encounter; Z79.891 Long term (current) use of opiate analgesic
CPT/HCPCS: 29515; 73610; 96372; 99284; J2270; A9270-GY